=== PATIENT | female | born 1960 | race American Indian/Alaskan Native ===

== ENCOUNTER 2018-02-22 08:43 | Emergency (ER) | payer MEDICAID ==
[~2018-02-22] VITALS: Ht 172.7 cm; Wt 90.0 kg
[~2018-02-22 08:43] MED LIST: AMIO200T57 PO; ASPI-845 PO; CYCL-1 PO; HYDR-569 PO; MAG30ORA PO; METH4TAB3 PO; METH500T PO; NITR0.4T48 SL; ONDA8TAB9 PO
[2018-02-22 09:08] VITALS: BP 125/84
[2018-02-22] MEDS ORDERED: ketorolac trometh inj. 60 MG/2 ML VIAL IM ONE (09:20)
[2018-02-22] MEDS ORDERED: IBUP-1984 PO (09:23)
[2018-02-23] MEDS ORDERED: AZIT-57 PO (15:49)
== END 2018-02-22 10:05 | disposition home or self-care (01) ==
LOC: ER 08:45
DX: M54.2 Cervicalgia (principal); M54.32 Sciatica, left side; I25.10 Atherosclerotic heart disease of native coronary artery without angina pectoris; I10 Essential (primary) hypertension; G89.29 Other chronic pain; I25.2 Old myocardial infarction; I48.91 Unspecified atrial fibrillation; F17.200 Nicotine dependence, unspecified, uncomplicated; Z90.49 Acquired absence of other specified parts of digestive tract; Z88.0 Allergy status to penicillin; Z79.899 Other long term (current) drug therapy; Z79.82 Long term (current) use of aspirin
CPT/HCPCS: 96372; 99283; J1885

== ENCOUNTER 2018-02-23 14:09 | Emergency (ER) | payer MEDICAID ==
[~2018-02-23] VITALS: Ht 154.9 cm; Wt 90.0 kg
[~2018-02-23 14:09] MED LIST changes: +IBUP-1984 PO
[2018-02-23 15:19] LABS: BASOPHILS % (AUTO) 0.3 % (0-1); EOSINOPHILS # (AUTO) 0.3 X10'3 (0-0.9); EOSINOPHILS % (AUTO) 2.5 % (0-6); HEMOGLOBIN 14.3 g/dl (12.0-16.0); LYMPHOCYTES # (AUTO) 3.2 X10'3 (1.1-4.8); MEAN CORPUSCULAR HEMOGLOBIN 31.3 PG (27.0-31.0); MEAN CORPUSCULAR VOLUME 89.4 FL (78-98); MEAN PLATELET VOLUME 7.9 FL (7.4-10.4); MONOCYTES # (AUTO) 0.5 X10'3 (0-0.9); MONOCYTES % (AUTO) 4.5 % (2-12); NEUTROPHILS # (AUTO) 7.4 X10'3 (1.8-7.7); NEUTROPHILS % (AUTO) 64.7 % (42-75); PLATELET COUNT 229 X10'3 (140-440); RED BLOOD COUNT 4.59 X10'6 (4.20-5.60); RED CELL DISTRIBUTION WIDTH 13.6 % (11.5-14.5); WHITE BLOOD COUNT 11.4 X10'3 (4.5-11.0)
[2018-02-23 15:29] LABS: INR 0.9 INR; PARTIAL THROMBOPLASTIN TIME 24 SECONDS (22-32); PROTHROMBIN TIME 9.5 SECONDS (9.0-12.0)
[2018-02-23 15:34] LABS: ALANINE AMINOTRANSFERASE 36 U/L (12-78); ALBUMIN 3.7 G/DL (3.4-5.0); ALKALINE PHOSPHATASE 80 IU/L (46-116); ANION GAP 9 (8-16); ASPARTATE AMINO TRANSFERASE 19 U/L (10-37); BILIRUBIN,TOTAL 0.2 MG/DL (0.1-1.0); BLOOD UREA NITROGEN 16 MG/DL (7-18); BUN/CREATININE RATIO 17.8 (6.6-38.0); CALCIUM 9.2 MG/DL (8.5-10.1); CHLORIDE 109 MMOL/L (99-107); GLUCOSE 116 MG/DL (70-104); POTASSIUM 3.7 MMOL/L (3.5-5.1); SODIUM 145 MMOL/L (135-145); TOTAL CARBON DIOXIDE 27.1 MMOL/L (24-32); TOTAL PROTEIN 7.3 G/DL (6.4-8.2); eGFR 65 ML/MIN
[2018-02-23] MEDS ORDERED: AZIT-57 PO (15:49)
[2018-02-23 15:58] VITALS: BP 128/83
== END 2018-02-23 16:02 | disposition home or self-care (01) ==
LOC: ER 14:10
DX: M25.552 Pain in left hip (principal); I25.10 Atherosclerotic heart disease of native coronary artery without angina pectoris; I25.2 Old myocardial infarction; I48.91 Unspecified atrial fibrillation; I10 Essential (primary) hypertension; G89.29 Other chronic pain; Z90.49 Acquired absence of other specified parts of digestive tract; Z98.890 Other specified postprocedural states; Z88.0 Allergy status to penicillin; Z88.8 Allergy status to other drugs, medicaments and biological substances; Z79.899 Other long term (current) drug therapy; Z79.82 Long term (current) use of aspirin; Z56.0 Unemployment, unspecified
CPT/HCPCS: 36415; 71045; 80053; 84484; 85025; 85610; 85730; 93005; 99285

== ENCOUNTER 2018-02-26 08:26 | Emergency (ER) | payer MEDICAID ==
[~2018-02-26] VITALS: Ht 172.7 cm; Wt 78.6 kg
[~2018-02-26 08:26] MED LIST changes: +AZIT-57 PO
[2018-02-26 08:40] VITALS: BP 117/54
[2018-02-26] MEDS ORDERED: NEOM10DR45 OT (09:49)
== END 2018-02-26 10:15 | disposition home or self-care (01) ==
LOC: ER 08:26
DX: H60.91 Unspecified otitis externa, right ear (principal); I25.10 Atherosclerotic heart disease of native coronary artery without angina pectoris; I10 Essential (primary) hypertension; I25.2 Old myocardial infarction; G89.29 Other chronic pain; M19.90 Unspecified osteoarthritis, unspecified site; I48.91 Unspecified atrial fibrillation; Z90.49 Acquired absence of other specified parts of digestive tract; Z98.890 Other specified postprocedural states; Z88.0 Allergy status to penicillin; Z88.9 Allergy status to unspecified drugs, medicaments and biological substances; Z79.82 Long term (current) use of aspirin; Z79.899 Other long term (current) drug therapy
CPT/HCPCS: 99283

== ENCOUNTER 2019-07-16 01:41 | Emergency (ER) | payer MEDICAID ==
[~2019-07-16] VITALS: Ht 172.7 cm; Wt 83.6 kg
[~2019-07-16 01:41] MED LIST changes: -AMIO200T57 PO; +AMIO200T61 PO; -AZIT-57 PO; +HYDR-4383 PO; -HYDR-569 PO; -IBUP-1984 PO
[2019-07-16 02:10] LABS: CLARITY,URINE CLEAR (Clear); COLOR,URINE YELLOW (Yellow); GLUCOSE, URINE NEGATIVE (Neg); KETONES,URINE NEGATIVE (Neg); LEUKOCYTE ESTERASE ,URINE NEGATIVE (Neg); NITRITES, URINE NEGATIVE (Neg); OCCULT BLOOD,URINE NEGATIVE (Neg); PH,URINE 5.5 (4.8-8.0); PROTEIN,URINE NEGATIVE (Neg); UROBILINOGEN,URINE 0.2 E.U/dL (0.2-1.0)
[2019-07-16 02:13] LABS: UA COLLECTION TYPE VOIDED
[2019-07-16 02:57] LABS: ALANINE AMINOTRANSFERASE 46 U/L (12-78); ALBUMIN 3.2 G/DL (3.4-5.0); ALKALINE PHOSPHATASE 99 IU/L (46-116); ANION GAP 8 (8-16); ASPARTATE AMINO TRANSFERASE 24 U/L (10-37); BILIRUBIN,TOTAL 0.2 MG/DL (0.1-1.0); BLOOD UREA NITROGEN 10 MG/DL (7-18); BUN/CREATININE RATIO 12.3 (6.6-38.0); CALCIUM 8.2 MG/DL (8.5-10.1); CHLORIDE 111 MMOL/L (99-107); CREATININE 0.81 MG/DL (0.40-0.90); GLUCOSE 116 MG/DL (70-104); POTASSIUM 3.7 MMOL/L (3.5-5.1); SODIUM 147 MMOL/L (135-145); TOTAL CARBON DIOXIDE 27.6 MMOL/L (24-32); TOTAL PROTEIN 6.4 G/DL (6.4-8.2); eGFR 73 ML/MIN
[2019-07-16 02:59] LABS: BASOPHILS % (AUTO) 0.6 % (0-1); EOSINOPHILS # (AUTO) 0.2 X10'3 (0-0.9); EOSINOPHILS % (AUTO) 3.4 % (0-6); HEMATOCRIT 41.5 % (35.0-45.0); LYMPHOCYTES # (AUTO) 2.6 X10'3 (1.1-4.8); LYMPHOCYTES % (AUTO) 40.5 % (21-51); MEAN CORPUSCULAR HEMOGLOBIN 30.6 PG (27.0-31.0); MEAN CORPUSCULAR HGB CONC 33.7 g/dL (33.0-36.5); MEAN PLATELET VOLUME 8.3 FL (7.4-10.4); MONOCYTES # (AUTO) 0.5 X10'3 (0-0.9); MONOCYTES % (AUTO) 7.6 % (2-12); NEUTROPHILS # (AUTO) 3.1 X10'3 (1.8-7.7); NEUTROPHILS % (AUTO) 47.9 % (42-75); PLATELET COUNT 221 X10'3 (140-440); RED BLOOD COUNT 4.57 X10'6 (4.20-5.60); RED CELL DISTRIBUTION WIDTH 13.8 % (11.5-14.5); WHITE BLOOD COUNT 6.5 X10'3 (4.5-11.0)
[2019-07-16] MEDS ORDERED: normal saline 1000ml 1,000 ML IVB ONE (04:04)
[2019-07-16] MEDS ORDERED: proCHLORperazine 10 MG/2 ml inj IV ONE (04:05)
[2019-07-16] MEDS ORDERED: pantoprazole 40 MG vial IV ONE (08:25)
[2019-07-16] MEDS ORDERED: PANT-47 PO (08:34)
[2019-07-16] MEDS ORDERED: PROC25SU31 RC (08:34)
[2019-07-16 08:59] VITALS: BP 107/70
== END 2019-07-16 09:01 | disposition home or self-care (01) ==
LOC: ER 01:42
DX: R11.10 Vomiting, unspecified (principal); R10.13 Epigastric pain; I48.91 Unspecified atrial fibrillation; I25.10 Atherosclerotic heart disease of native coronary artery without angina pectoris; I10 Essential (primary) hypertension; I25.2 Old myocardial infarction; M19.90 Unspecified osteoarthritis, unspecified site; G89.29 Other chronic pain; F41.9 Anxiety disorder, unspecified; F17.200 Nicotine dependence, unspecified, uncomplicated; Z56.0 Unemployment, unspecified; Z88.0 Allergy status to penicillin; Z91.018 Allergy to other foods; Z90.49 Acquired absence of other specified parts of digestive tract; Z98.890 Other specified postprocedural states; Z79.82 Long term (current) use of aspirin; Z79.899 Other long term (current) drug therapy
CPT/HCPCS: 36415; 80053; 81003; 85025; 85610; 96361; 96374; 96375; 99283; C9113; J0780; J7030

== ENCOUNTER 2019-08-02 15:42 | Emergency (ER) | payer MEDICAID ==
[~2019-08-02] VITALS: Ht 172.7 cm; Wt 172.0 kg
[~2019-08-02 15:42] MED LIST changes: +PANT-47 PO; +PROC25SU31 RC
[2019-08-02 16:17] VITALS: BP 130/73
[2019-08-02] MEDS ORDERED: aspirin 81mg tab.chew PO ONE (16:35)
[2019-08-02 16:49] LABS: BASOPHILS # (AUTO) 0.1 X10'3 (0-0.2); BASOPHILS % (AUTO) 1.2 % (0-1); EOSINOPHILS # (AUTO) 0.4 X10'3 (0-0.9); EOSINOPHILS % (AUTO) 3.4 % (0-6); HEMATOCRIT 44.9 % (35.0-45.0); HEMOGLOBIN 14.9 g/dl (12.0-16.0); LYMPHOCYTES # (AUTO) 4.1 X10'3 (1.1-4.8); LYMPHOCYTES % (AUTO) 35.9 % (21-51); MEAN CORPUSCULAR HGB CONC 33.2 g/dL (33.0-36.5); MEAN CORPUSCULAR VOLUME 90.3 FL (78-98); MEAN PLATELET VOLUME 8.9 FL (7.4-10.4); MONOCYTES # (AUTO) 0.6 X10'3 (0-0.9); MONOCYTES % (AUTO) 4.9 % (2-12); NEUTROPHILS # (AUTO) 6.2 X10'3 (1.8-7.7); NEUTROPHILS % (AUTO) 54.6 % (42-75); PLATELET COUNT 249 X10'3 (140-440); RED BLOOD COUNT 4.98 X10'6 (4.20-5.60); RED CELL DISTRIBUTION WIDTH 13.7 % (11.5-14.5); WHITE BLOOD COUNT 11.4 X10'3 (4.5-11.0)
[2019-08-02 16:57] LABS: ALANINE AMINOTRANSFERASE 40 U/L (12-78); ALBUMIN 3.9 G/DL (3.4-5.0); ALBUMIN/GLOBULIN RATIO 1.1 (1.1-1.5); ALKALINE PHOSPHATASE 104 IU/L (46-116); ANION GAP 14 (8-16); ASPARTATE AMINO TRANSFERASE 16 U/L (10-37); BILIRUBIN,TOTAL 0.1 MG/DL (0.1-1.0); BLOOD UREA NITROGEN 13 MG/DL (7-18); BUN/CREATININE RATIO 16.7 (6.6-38.0); CALCIUM 8.8 MG/DL (8.5-10.1); CHLORIDE 109 MMOL/L (99-107); CREATININE 0.78 MG/DL (0.40-0.90); GLUCOSE 158 MG/DL (70-104); POTASSIUM 3.8 MMOL/L (3.5-5.1); SODIUM 144 MMOL/L (135-145); TOTAL CARBON DIOXIDE 21.2 MMOL/L (24-32); TOTAL PROTEIN 7.4 G/DL (6.4-8.2); eGFR 76 ML/MIN
--- NOTE | 2019-08-02 18:10 | NUR ---
PT LEFT WITHOUT BEING SEEN, ANNOUNCED LEAVING TO REGISTRATION
== END 2019-08-02 18:10 | disposition left against medical advice (07) ==
LOC: ER 15:42
DX: R07.89 Other chest pain (principal); Z53.21 Procedure and treatment not carried out due to patient leaving prior to being seen by health care provider
CPT/HCPCS: 36415; 71045; 80053; 83735; 83880; 84484; 85025; 93005

== ENCOUNTER 2019-12-21 18:56 | Emergency (ER) | payer MEDICAID ==
[~2019-12-21] VITALS: Ht 172.7 cm; Wt 95.7 kg
[~2019-12-21 18:56] MED LIST changes: -PROC25SU31 RC
[2019-12-21 20:11] LABS: BASOPHILS # (AUTO) 0.1 X10'3 (0-0.2); BASOPHILS % (AUTO) 1.1 % (0-1); EOSINOPHILS # (AUTO) 0.4 X10'3 (0-0.9); EOSINOPHILS % (AUTO) 3.2 % (0-6); HEMATOCRIT 43.8 % (35.0-45.0); HEMOGLOBIN 15.1 g/dl (12.0-16.0); LYMPHOCYTES # (AUTO) 3.6 X10'3 (1.1-4.8); LYMPHOCYTES % (AUTO) 31.4 % (21-51); MEAN CORPUSCULAR HEMOGLOBIN 30.5 PG (27.0-31.0); MEAN CORPUSCULAR HGB CONC 34.4 g/dL (33.0-36.5); MEAN CORPUSCULAR VOLUME 88.5 FL (78-98); MEAN PLATELET VOLUME 7.9 FL (7.4-10.4); MONOCYTES # (AUTO) 0.5 X10'3 (0-0.9); MONOCYTES % (AUTO) 4.5 % (2-12); NEUTROPHILS # (AUTO) 6.9 X10'3 (1.8-7.7); NEUTROPHILS % (AUTO) 59.8 % (42-75); PLATELET COUNT 244 X10'3 (140-440); RED BLOOD COUNT 4.95 X10'6 (4.20-5.60); RED CELL DISTRIBUTION WIDTH 13.6 % (11.5-14.5); WHITE BLOOD COUNT 11.5 X10'3 (4.5-11.0)
[2019-12-21 20:23] LABS: ALANINE AMINOTRANSFERASE 36 U/L (12-78); ALBUMIN 3.8 G/DL (3.4-5.0); ALBUMIN/GLOBULIN RATIO 1.1 (1.1-1.5); ALKALINE PHOSPHATASE 113 IU/L (46-116); ANION GAP 10 (8-16); ASPARTATE AMINO TRANSFERASE 17 U/L (10-37); BILIRUBIN,TOTAL 0.2 MG/DL (0.1-1.0); BLOOD UREA NITROGEN 13 MG/DL (7-18); CALCIUM 9.3 MG/DL (8.5-10.1); CHLORIDE 109 MMOL/L (99-107); GLUCOSE 126 MG/DL (70-104); POTASSIUM 3.8 MMOL/L (3.5-5.1); SODIUM 145 MMOL/L (135-145); TOTAL CARBON DIOXIDE 26.5 MMOL/L (24-32); TOTAL PROTEIN 7.2 G/DL (6.4-8.2); eGFR 57 ML/MIN
[2019-12-21 20:35] VITALS: BP 134/81
== END 2019-12-21 21:25 | disposition home or self-care (01) ==
LOC: ER 18:56
DX: M54.12 Radiculopathy, cervical region (principal); R20.2 Paresthesia of skin; I48.91 Unspecified atrial fibrillation; I25.10 Atherosclerotic heart disease of native coronary artery without angina pectoris; I10 Essential (primary) hypertension; I25.2 Old myocardial infarction; M19.90 Unspecified osteoarthritis, unspecified site; G89.29 Other chronic pain; F41.9 Anxiety disorder, unspecified; Z90.49 Acquired absence of other specified parts of digestive tract; Z98.890 Other specified postprocedural states; Z56.0 Unemployment, unspecified; Z88.0 Allergy status to penicillin; Z79.82 Long term (current) use of aspirin; Z79.899 Other long term (current) drug therapy; Z91.018 Allergy to other foods
CPT/HCPCS: 36415; 71045; 80053; 84484; 85025; 93005; 99285

== ENCOUNTER 2020-01-08 21:32 | Inpatient (IN) | payer MEDICAID ==
[~2020-01-08] VITALS: Ht 172.7 cm; Wt 97.0 kg
[2020-01-08 22:05] LABS: BASOPHILS # (AUTO) 0.1 X10'3 (0-0.2); BASOPHILS % (AUTO) 0.9 % (0-1); EOSINOPHILS # (AUTO) 0.3 X10'3 (0-0.9); EOSINOPHILS % (AUTO) 2.8 % (0-6); HEMATOCRIT 45.9 % (35.0-45.0); HEMOGLOBIN 15.7 g/dl (12.0-16.0); LYMPHOCYTES # (AUTO) 3.5 X10'3 (1.1-4.8); LYMPHOCYTES % (AUTO) 28.1 % (21-51); MEAN CORPUSCULAR HEMOGLOBIN 30.2 PG (27.0-31.0); MEAN CORPUSCULAR HGB CONC 34.1 g/dL (33.0-36.5); MEAN CORPUSCULAR VOLUME 88.7 FL (78-98); MEAN PLATELET VOLUME 7.9 FL (7.4-10.4); MONOCYTES # (AUTO) 0.7 X10'3 (0-0.9); MONOCYTES % (AUTO) 5.8 % (2-12); NEUTROPHILS # (AUTO) 7.7 X10'3 (1.8-7.7); NEUTROPHILS % (AUTO) 62.4 % (42-75); PLATELET COUNT 263 X10'3 (140-440); RED BLOOD COUNT 5.18 X10'6 (4.20-5.60); RED CELL DISTRIBUTION WIDTH 13.7 % (11.5-14.5); WHITE BLOOD COUNT 12.4 X10'3 (4.5-11.0)
[2020-01-08] MEDS ORDERED: aspirin 81mg tab.chew PO ONE (22:05)
[2020-01-08] MEDS ORDERED: nitroGLYCERIN 0.4mg SUBLingual tab SL PRN (22:05)
[2020-01-08] MEDS ORDERED: acetaminophen 325mg tablet PO ONE (22:05)
[2020-01-08 22:07] LABS: ALANINE AMINOTRANSFERASE 40 U/L (12-78); ALBUMIN 3.9 G/DL (3.4-5.0); ALBUMIN/GLOBULIN RATIO 1.1 (1.1-1.5); ALKALINE PHOSPHATASE 104 IU/L (46-116); ANION GAP 9 (8-16); ASPARTATE AMINO TRANSFERASE 18 U/L (10-37); BILIRUBIN,TOTAL 0.3 MG/DL (0.1-1.0); BLOOD UREA NITROGEN 8 MG/DL (7-18); BUN/CREATININE RATIO 8.7 (6.6-38.0); CALCIUM 8.6 MG/DL (8.5-10.1); CHLORIDE 108 MMOL/L (99-107); CREATININE 0.92 MG/DL (0.40-0.90); GLUCOSE 109 MG/DL (70-104); POTASSIUM 3.8 MMOL/L (3.5-5.1); SODIUM 143 MMOL/L (135-145); TOTAL CARBON DIOXIDE 26.3 MMOL/L (24-32); TOTAL PROTEIN 7.4 G/DL (6.4-8.2); eGFR 63 ML/MIN
[2020-01-08 22:25] LABS: MAGNESIUM 2.1 MG/DL (1.5-2.4); PHOSPHORUS 3.6 MG/DL (2.3-4.5)
[2020-01-08 22:38] LABS: PARTIAL THROMBOPLASTIN TIME 25 SECONDS (22-32)
[2020-01-08] MEDS ORDERED: mag hydrox/Alum hydrox/simeth 30ml oral suspension PO PRN (23:35)
[2020-01-08] MEDS ORDERED: potassium Cl 20 mEq SR tablet PO PRN ×2 (23:35)
[2020-01-08] MEDS ORDERED: magnesium 2GM in 50ml NS 50 ML IV PRN (23:35)
[2020-01-08] MEDS ORDERED: acetaminophen 325mg tablet PO PRN (23:35)
[2020-01-08] MEDS ORDERED: potassium CL 10mEq/100ml bag 100 ML IV PRN ×2 (23:35)
[2020-01-08] MEDS ORDERED: magnesium Cl slow-release 64mg tablet PO PRN (23:35)
[2020-01-08] MEDS ORDERED: temazepam 15mg capsule PO ONE (23:35)
[2020-01-08] MEDS ORDERED: ondansetron/PF 4mg/2ml inj IV PRN (23:35)
[2020-01-08] MEDS ORDERED: magnesium 4gm in 100ml NS 100 ML IV PRN (23:35)
[2020-01-08] MEDS ORDERED: magnesium hydroxide 30ml (MOM) UD suspension PO PRN (23:35)
--- NOTE | 2020-01-08 23:40 | NUR ---
Brought patient a snack.
[2020-01-09 00:58] LABS: ALANINE AMINOTRANSFERASE 35 U/L (12-78); ALBUMIN 3.5 G/DL (3.4-5.0); ALBUMIN/GLOBULIN RATIO 1.1 (1.1-1.5); ALKALINE PHOSPHATASE 95 IU/L (46-116); ANION GAP 7 (8-16); ASPARTATE AMINO TRANSFERASE 17 U/L (10-37); BILIRUBIN,TOTAL 0.2 MG/DL (0.1-1.0); BLOOD UREA NITROGEN 10 MG/DL (7-18); BUN/CREATININE RATIO 11.8 (6.6-38.0); CALCIUM 8.5 MG/DL (8.5-10.1); CHLORIDE 109 MMOL/L (99-107); CREATININE 0.85 MG/DL (0.40-0.90); GLUCOSE 149 MG/DL (70-104); POTASSIUM 3.8 MMOL/L (3.5-5.1); SODIUM 142 MMOL/L (135-145); TOTAL CARBON DIOXIDE 25.6 MMOL/L (24-32); TOTAL PROTEIN 6.8 G/DL (6.4-8.2); eGFR 69 ML/MIN
[2020-01-09] MEDS ORDERED: HYDR-4353 PO (01:19)
[2020-01-09] MEDS: HYDROcodone/acetaminophen 10/325mg tab PO PRN ×2 (02:49→07:40)
[2020-01-09 03:04] VITALS: BP 99/59
[2020-01-09] MEDS ORDERED: metoprolol tartrate 1mg/ml inj IV PRN (06:15)
[2020-01-09] MEDS ORDERED: nitroGLYCERIN 0.4mg SUBLingual tab SL PRN (06:15)
[2020-01-09 06:16] LABS: BASOPHILS # (AUTO) 0.1 X10'3 (0-0.2); BASOPHILS % (AUTO) 0.9 % (0-1); EOSINOPHILS # (AUTO) 0.4 X10'3 (0-0.9); EOSINOPHILS % (AUTO) 3.8 % (0-6); HEMATOCRIT 43.2 % (35.0-45.0); HEMOGLOBIN 14.8 g/dl (12.0-16.0); LYMPHOCYTES # (AUTO) 4.2 X10'3 (1.1-4.8); MEAN CORPUSCULAR HEMOGLOBIN 30.4 PG (27.0-31.0); MEAN CORPUSCULAR HGB CONC 34.1 g/dL (33.0-36.5); MEAN CORPUSCULAR VOLUME 89.1 FL (78-98); MEAN PLATELET VOLUME 8.1 FL (7.4-10.4); MONOCYTES # (AUTO) 0.6 X10'3 (0-0.9); MONOCYTES % (AUTO) 6.2 % (2-12); NEUTROPHILS # (AUTO) 4.9 X10'3 (1.8-7.7); NEUTROPHILS % (AUTO) 48.1 % (42-75); PLATELET COUNT 257 X10'3 (140-440); RED BLOOD COUNT 4.85 X10'6 (4.20-5.60); RED CELL DISTRIBUTION WIDTH 13.7 % (11.5-14.5); WHITE BLOOD COUNT 10.3 X10'3 (4.5-11.0)
[2020-01-09 06:30] VITALS: BP 118/79
--- NOTE | 2020-01-09 06:32 | NUR ---
Problems reprioritized. Patient report given, questions answered & plan of care reviewed with MAGGY Tracy . Patient stable at shift change
--- NOTE | 2020-01-09 06:38 | NUR ---
Patient in room MED 313. I have received report from Vinnie WINTER and had the opportunity to ask questions and assume patient care.
[2020-01-09 07:42] VITALS: BP_SYST 92
[2020-01-09] MEDS ORDERED: aspirin 81mg tab.chew PO SCH (08:00)
[2020-01-09] MEDS ORDERED: enoxaparin 40mg/0.4ml syringe SQ SCH (08:00)
[2020-01-09] MEDS ORDERED: clopidogrel 75mg tablet PO SCH (08:00)
[2020-01-09] MEDS ORDERED: metoprolol tartrate 12.5mg (1/2 tablet) PO SCH (08:00)
[2020-01-09] MEDS ORDERED: K and/or MAG REPLACEMENT MC SCH (08:00)
[2020-01-09] MEDS ORDERED: ASPI-1265 PO (09:47)
[2020-01-09] MEDS ORDERED: METO25TA6 PO (09:47)
[2020-01-09] MEDS ORDERED: NITR0.4T51 SL (09:47)
--- NOTE | 2020-01-09 12:00 | NUR ---
Discussed discharge instructions with patient, verbalized understanding, eager to go home. IV removed, cathlon intact, Belongings with patient and ready to go. Meds called into pharmacy. Waiting on ride and will d/c after lunch.
--- NOTE | 2020-01-09 12:35 | NUR ---
Escorted patient out via [facility] staff to patient private vehicle of whom her friend is driving, tolerated without event.
== END 2020-01-09 12:35 | disposition home or self-care (01) | DRG 198 ==
LOC: ER 21:32 → ED HOLD 23:36 → MED 3N 01-09 02:15 → OBSVTOIN 01-09 11:10
PROVIDERS: ADMIT Family Medicine; ATTEND Family Medicine
DX: R07.89 Other chest pain (principal); I25.10 Atherosclerotic heart disease of native coronary artery without angina pectoris; I48.91 Unspecified atrial fibrillation; F17.210 Nicotine dependence, cigarettes, uncomplicated; F41.9 Anxiety disorder, unspecified; I10 Essential (primary) hypertension; G89.29 Other chronic pain; M19.90 Unspecified osteoarthritis, unspecified site; M54.9 Dorsalgia, unspecified; R51 Headache; Z90.49 Acquired absence of other specified parts of digestive tract; I25.2 Old myocardial infarction; Z87.440 Personal history of urinary (tract) infections; Z88.0 Allergy status to penicillin
CPT/HCPCS: 36415; 70450; 71045; 80053; 83735; 84100; 84484; 85025; 85610; 85730; 87081; 96372; 99285; G0378; J1650

== ENCOUNTER 2021-05-14 10:57 | Day surgery (SDC) | payer MEDICAID ==
[2021-05-09 17:18] LABS: BASOPHILS # (AUTO) 0.1 X10'3 (0-0.2); BASOPHILS % (AUTO) 0.6 % (0-1); EOSINOPHILS # (AUTO) 0.3 X10'3 (0-0.9); EOSINOPHILS % (AUTO) 2.7 % (0-6); LYMPHOCYTES % (AUTO) 30.6 % (21-51); MEAN CORPUSCULAR HEMOGLOBIN 30.2 PG (27.0-31.0); MEAN CORPUSCULAR HGB CONC 33.5 g/dL (33.0-36.5); MEAN CORPUSCULAR VOLUME 90.2 FL (78-98); MEAN PLATELET VOLUME 8.5 FL (7.4-10.4); MONOCYTES # (AUTO) 0.5 X10'3 (0-0.9); MONOCYTES % (AUTO) 5.4 % (2-12); NEUTROPHILS % (AUTO) 60.7 % (42-75); PRE OP HEMOGLOBIN 14.7 g/dL (12.0-16.0); PRE OP PLATELET COUNT 245 X10'3 (140-440); RED BLOOD COUNT 4.88 X10'6 (4.20-5.60); RED CELL DISTRIBUTION WIDTH 13.7 % (11.5-14.5)
[2021-05-09 17:55] LABS: ALBUMIN 3.6 G/DL (3.4-5.0); ALBUMIN/GLOBULIN RATIO 1.1 (1.1-1.5); ALKALINE PHOSPHATASE 115 IU/L (46-116); BLOOD UREA NITROGEN 18 MG/DL (7-18); BUN/CREATININE RATIO 22.5 (6.6-38.0); CALCIUM 8.2 MG/DL (8.5-10.1); CHLORIDE 109 MMOL/L (99-107); PRE OP ALT 38 U/L (30-65); PRE OP ANION GAP 11 (8-16); PRE OP AST 14 U/L (10-37); PRE OP BILIRUB, TOTAL 0.2 MG/DL (0.0-1.0); PRE OP GLUCOSE 110 MG/DL (70-104); PRE OP POTASSIUM 4.3 MMOL/L (3.4-5.1); PRE OP SODIUM 142 MMOL/L (135-145); TOTAL CARBON DIOXIDE 22.3 MMOL/L (24-32); eGFR 74 ML/MIN
[2021-05-14] VITALS (8 sets, daily range): BP systolic 112–125; BP diastolic 59–86
[~2021-05-14] VITALS: Ht 172.7 cm; Wt 94.7 kg
[~2021-05-14 10:57] MED LIST changes: -AMIO200T61 PO; +ASPI-1071 PO; -ASPI-845 PO; -CYCL-1 PO; +HYDR-3973 PO; -HYDR-4383 PO; -MAG30ORA PO; -METH4TAB3 PO; -METH500T PO; -NITR0.4T48 SL; +NITR0.4T51 SL; -ONDA8TAB9 PO; -PANT-47 PO; +albuterol 2.5 MG/3 ML nebule NEB ONE; +clindamycin-Cleocin 900mg/D5W 50 ML IV ONE; +famotidine 20mg tablet PO ONE; +ringers solution, lacted 1,000 ML IV SCH
[2021-05-14] MEDS ORDERED: BUPIVAcaine/PF 2.5mg/ml (0.25%) 10ml vial ONE (12:03)
[2021-05-14] MEDS ORDERED: LIDOcaine 1% 30ml preserv. free vial ONE (12:03)
[2021-05-14] MEDS ORDERED: sevoflurane 250ml liquid IH ONE (12:12)
[2021-05-14] MEDS ORDERED: fentaNYL/PF 50MCG/1 ML 2ML syringe ONE (12:26)
[2021-05-14] MEDS ORDERED: midazolam 1 mg/ML 2ml injection ONE (12:27)
[2021-05-14] MEDS ORDERED: propofol inj 20 ML IV ONE (12:31)
[2021-05-14] MEDS ORDERED: ondansetron/PF 4mg/2ml inj IV PRN (12:45)
[2021-05-14] MEDS ORDERED: morphine 4 MG/ML inj SYRINge IV PRN (12:45)
[2021-05-14] MEDS ORDERED: morphine 2 MG/ML inj. syringe IV PRN (12:45)
[2021-05-14] MEDS ORDERED: meperidine/PF 25mg/ml syringe IV PRN ×3 (12:45)
[2021-05-14] MEDS ORDERED: proCHLORperazine 10 MG/2 ml inj IV PRN (12:45)
[2021-05-14] MEDS ORDERED: ringers solution, lacted 1,000 ML IV SCH (12:45)
[2021-05-14] MEDS ORDERED: LIDOcaine 2% (20mg/ml) 5ml vial ONE (12:49)
[2021-05-14] MEDS ORDERED: HYDROcodone/acetaminophen 10/325mg tab PO PRN (13:00)
--- NOTE | 2021-05-14 13:10 | NUR ---
Received from OR via [facility], accompanied by Anesthesiologist Dr. Hillman and report given by Anesthesiolgist. Patient has R.AC 20g with LR. Left lateral chest dressing CDI. VSS.
--- NOTE | 2021-05-14 14:00 | NUR ---
Patient discharged home with niece. States 10/10 pain with nonverbal pain of zero. Patient has chronic pain that she takes norco for. She states to have all belongings and dressing changed to left lateral chest due to patient accidentally pulling it off. She is given all discharge paperwork and is told she will have a follow up call but any questions to be directed toward Dr. Walker. She is aware she is to make her follow up appointment with him. PIV removed and patient offers no complaints.
== END 2021-05-14 14:00 | disposition home or self-care (01) ==
LOC: PAS 10:57
PROVIDERS: ATTEND Surgery
DX: R22.2 Localized swelling, mass and lump, trunk (principal); D17.1 Benign lipomatous neoplasm of skin and subcutaneous tissue of trunk; J44.9 Chronic obstructive pulmonary disease, unspecified; F17.210 Nicotine dependence, cigarettes, uncomplicated; G89.29 Other chronic pain; I48.91 Unspecified atrial fibrillation; Z20.822 Contact with and (suspected) exposure to COVID-19; Z79.899 Other long term (current) drug therapy; Z90.49 Acquired absence of other specified parts of digestive tract; Z98.890 Other specified postprocedural states; Z79.82 Long term (current) use of aspirin; Z88.0 Allergy status to penicillin; Z88.5 Allergy status to narcotic agent; Z91.018 Allergy to other foods; Z88.8 Allergy status to other drugs, medicaments and biological substances; Z91.030 Bee allergy status
CPT/HCPCS: 21552; 36415; 80053; 82948; 85025; 93005; J2001; J2250; J2704; J3010; J3490; J7120; U0003; U0005; A4215; A4618; A7000

== ENCOUNTER 2021-08-17 18:21 | Emergency (ER) | payer MEDICAID ==
[~2021-08-17] VITALS: Ht 172.7 cm; Wt 79.5 kg
[~2021-08-17 18:21] MED LIST changes: -albuterol 2.5 MG/3 ML nebule NEB ONE; -clindamycin-Cleocin 900mg/D5W 50 ML IV ONE; -famotidine 20mg tablet PO ONE; -ringers solution, lacted 1,000 ML IV SCH
[2021-08-17 18:25] VITALS: BP 131/79
[2021-08-17] MEDS ORDERED: acetaminophen 325mg tablet PO ONE (20:05)
== END 2021-08-17 20:34 | disposition home or self-care (01) ==
LOC: ER 18:22
DX: G44.209 Tension-type headache, unspecified, not intractable (principal); Z20.822 Contact with and (suspected) exposure to COVID-19; I11.9 Hypertensive heart disease without heart failure; F41.9 Anxiety disorder, unspecified; G89.29 Other chronic pain; M54.9 Dorsalgia, unspecified; F17.210 Nicotine dependence, cigarettes, uncomplicated; Z88.0 Allergy status to penicillin; Z91.018 Allergy to other foods
CPT/HCPCS: 87635; 99283; C9803

== ENCOUNTER 2022-05-28 17:29 | Inpatient (IN) | payer MEDICAID ==
[~2022-05-28] VITALS: Ht 172.7 cm; Wt 100.0 kg
[2022-05-28] MEDS ORDERED: aspirin 81mg tab.chew PO ONE (17:50)
[2022-05-28] MEDS ORDERED: normal saline 1000ML IV soln IVB ONE (17:50)
[2022-05-28] MEDS ORDERED: diltiazem 5mg/ml 5ml inj. IV ONE ×7 (17:50→19:15)
[2022-05-28 18:27] LABS: BASOPHILS # (AUTO) 0.1 X10'3 (0-0.2); BASOPHILS % (AUTO) 0.9 % (0-1); EOSINOPHILS # (AUTO) 0.3 X10'3 (0-0.9); EOSINOPHILS % (AUTO) 2.6 % (0-6); HEMATOCRIT 44.5 % (35.0-45.0); HEMOGLOBIN 14.8 g/dl (12.0-16.0); LYMPHOCYTES # (AUTO) 3.8 X10'3 (1.1-4.8); LYMPHOCYTES % (AUTO) 38.7 % (21-51); MEAN CORPUSCULAR HEMOGLOBIN 29.9 PG (27.0-31.0); MEAN CORPUSCULAR HGB CONC 33.3 g/dL (33.0-36.5); MEAN CORPUSCULAR VOLUME 89.7 FL (78-98); MEAN PLATELET VOLUME 8.4 FL (7.4-10.4); MONOCYTES # (AUTO) 0.6 X10'3 (0-0.9); MONOCYTES % (AUTO) 5.6 % (2-12); NEUTROPHILS # (AUTO) 5.2 X10'3 (1.8-7.7); NEUTROPHILS % (AUTO) 52.2 % (42-75); PLATELET COUNT 232 X10'3 (140-440); RED BLOOD COUNT 4.96 X10'6 (4.20-5.60); RED CELL DISTRIBUTION WIDTH 13.7 % (11.5-14.5)
[2022-05-28 18:38] LABS: APTT 24 SECONDS (22-32)
[2022-05-28 18:39] LABS: ALANINE AMINOTRANSFERASE 73 U/L (12-78); ALBUMIN 3.7 G/DL (3.4-5.0); ALBUMIN/GLOBULIN RATIO 1.1 (1.1-1.5); ALKALINE PHOSPHATASE 100 IU/L (46-116); ANION GAP 13 (8-16); ASPARTATE AMINO TRANSFERASE 24 U/L (10-37); BILIRUBIN,TOTAL 0.4 MG/DL (0.1-1.0); BLOOD UREA NITROGEN 12 MG/DL (7-18); BUN/CREATININE RATIO 13.3 (6.6-38.0); CALCIUM 8.7 MG/DL (8.5-10.1); CHLORIDE 111 MMOL/L (99-107); GLUCOSE 131 MG/DL (70-104); POTASSIUM 3.7 MMOL/L (3.5-5.1); SODIUM 145 MMOL/L (135-145); TOTAL CARBON DIOXIDE 20.9 MMOL/L (24-32); TOTAL PROTEIN 7.2 G/DL (6.4-8.2); eGFR 64 ML/MIN
[2022-05-28 18:50] LABS: MAGNESIUM 1.9 MG/DL (1.5-2.4)
[2022-05-28] MEDS: diltiazem-NS 100mg/100ml 100 ML IV PRN (19:36)
[2022-05-28] MEDS ORDERED: potassium CL 10mEq/100ml bag 100 ML IV PRN (19:50)
[2022-05-28] MEDS ORDERED: POTASSIUM BICARB 20meq eff tab 20 MEQ TABLET.EFF PO PRN ×2 (19:50)
[2022-05-28] MEDS ORDERED: PERFLUTREN PROTEIN-A MICROSPHR (Optison) 0.22 MG/ML 3ML VIAL IV ONE (19:50)
[2022-05-28] MEDS ORDERED: acetaminophen 325mg tablet PO PRN (19:50)
[2022-05-28] MEDS ORDERED: magnesium Cl slow-release 64mg tablet PO PRN (19:50)
[2022-05-28] MEDS ORDERED: magnesium 4gm in 100ml NS 100 ML IV PRN (19:50)
[2022-05-28] MEDS ORDERED: mag hydrox/Alum hydrox/simeth 30ml oral suspension PO PRN (19:50)
[2022-05-28] MEDS ORDERED: ondansetron/PF 4mg/2ml inj IV PRN (19:50)
[2022-05-28] MEDS ORDERED: magnesium 2GM in 50ml NS 50 ML IV PRN (19:50)
[2022-05-28] MEDS ORDERED: magnesium hydroxide 30ml (MOM) UD suspension PO PRN (19:50)
[2022-05-28] MEDS: docusate sod 100mg capsule PO SCH (20:00)
[2022-05-28] MEDS: K and/or MAG REPLACEMENT MC SCH (20:00)
[2022-05-28] MEDS ORDERED: heparin, porcine 5000 units/ml vial SQ SCH (20:00)
[2022-05-28] MEDS ORDERED: NITR0.4T48 SL (20:10)
[2022-05-28] MEDS ORDERED: ALBU2.5V10 NEB (20:10)
[2022-05-28] MEDS ORDERED: HYDR-3972 PO (20:10)
[2022-05-28] MEDS ORDERED: LIDO700A47 TOP (20:10)
[2022-05-28] MEDS ORDERED: OMEP40CA21 PO (20:10)
[2022-05-28] MEDS ORDERED: heparin, porcine 5000 units/ml vial SQ ONE (20:10)
[2022-05-28] MEDS ORDERED: CELE100C98 PO (20:10)
[2022-05-28] MEDS ORDERED: POTA8TAB69 PO (20:10)
[2022-05-28] MEDS ORDERED: BUDE0.5A3 NEB (20:10)
[2022-05-28] MEDS ORDERED: TIOT4MIS2 PO (20:10)
[2022-05-28] MEDS ORDERED: METO10TA3 PO (20:10)
[2022-05-28] MEDS ORDERED: FURO20TA4 PO (20:10)
[2022-05-28] MEDS ORDERED: normal saline 500ml IV soln 500 ML IV SCH (20:15)
[2022-05-28] MEDS: normal saline 1000ml 1,000 ML IV SCH (20:22)
[2022-05-28 20:38] LABS: CLARITY,URINE CLEAR (Clear); COLOR,URINE YELLOW (Yellow); GLUCOSE, URINE NEGATIVE (Neg); KETONES,URINE NEGATIVE (Neg); LEUKOCYTE ESTERASE ,URINE NEGATIVE (Neg); NITRITES, URINE NEGATIVE (Neg); OCCULT BLOOD,URINE NEGATIVE (Neg); PH,URINE 5.5 (4.8-8.0); PROTEIN,URINE NEGATIVE (Neg); UROBILINOGEN,URINE 0.2 E.U/dL (0.2-1.0)
[2022-05-28 20:41] LABS: POTASSIUM 3.8 MMOL/L (3.5-5.1)
[2022-05-28 20:44] LABS: UA COLLECTION TYPE CLN CATCH MIDSTREAM
[2022-05-29] MEDS ORDERED: metoprolol tartrate 1mg/ml inj IV ONE (00:55)
[2022-05-29] MEDS ORDERED: albuterol 2.5 MG/3 ML nebule NEB PRN (01:05)
[2022-05-29] MEDS ORDERED: nitroGLYCERIN 0.4mg SUBLingual tab SL PRN (01:05)
[2022-05-29] MEDS ORDERED: HYDROcodone/acetaminophen 10/325mg tab PO PRN (01:05)
[2022-05-29] MEDS: ipratropium 0.5 MG/2.5ML nebule IH SCH ×4 (02:11→20:59)
[2022-05-29 03:30] LABS: BASOPHILS # (AUTO) 0.1 X10'3 (0-0.2); BASOPHILS % (AUTO) 1.5 % (0-1); EOSINOPHILS # (AUTO) 0.2 X10'3 (0-0.9); EOSINOPHILS % (AUTO) 2.6 % (0-6); HEMATOCRIT 39.7 % (35.0-45.0); HEMOGLOBIN 13.2 g/dl (12.0-16.0); LYMPHOCYTES % (AUTO) 31.6 % (21-51); MEAN CORPUSCULAR HEMOGLOBIN 29.8 PG (27.0-31.0); MEAN CORPUSCULAR HGB CONC 33.3 g/dL (33.0-36.5); MEAN CORPUSCULAR VOLUME 89.5 FL (78-98); MEAN PLATELET VOLUME 8.8 FL (7.4-10.4); MONOCYTES # (AUTO) 0.5 X10'3 (0-0.9); MONOCYTES % (AUTO) 5.5 % (2-12); NEUTROPHILS # (AUTO) 5.6 X10'3 (1.8-7.7); NEUTROPHILS % (AUTO) 58.8 % (42-75); PLATELET COUNT 205 X10'3 (140-440); RED BLOOD COUNT 4.44 X10'6 (4.20-5.60); RED CELL DISTRIBUTION WIDTH 13.9 % (11.5-14.5); WHITE BLOOD COUNT 9.4 X10'3 (4.5-11.0)
[2022-05-29 03:46] LABS: ALANINE AMINOTRANSFERASE 63 U/L (12-78); ALBUMIN 3.1 G/DL (3.4-5.0); ALKALINE PHOSPHATASE 85 IU/L (46-116); ANION GAP 12 (8-16); ASPARTATE AMINO TRANSFERASE 26 U/L (10-37); BILIRUBIN,TOTAL 0.4 MG/DL (0.1-1.0); BLOOD UREA NITROGEN 14 MG/DL (7-18); BUN/CREATININE RATIO 16.5 (6.6-38.0); CALCIUM 7.9 MG/DL (8.5-10.1); CHLORIDE 111 MMOL/L (99-107); CREATININE 0.85 MG/DL (0.40-0.90); GLUCOSE 143 MG/DL (70-104); MAGNESIUM 1.8 MG/DL (1.5-2.4); POTASSIUM 3.6 MMOL/L (3.5-5.1); SODIUM 143 MMOL/L (135-145); TOTAL CARBON DIOXIDE 20.1 MMOL/L (24-32); TOTAL PROTEIN 6.1 G/DL (6.4-8.2); eGFR 68 ML/MIN
[2022-05-29] MEDS ORDERED: metoprolol tartrate 50mg tablet PO ONE (04:20)
--- NOTE | 2022-05-29 04:20 | NUR ---
IN CONTACT WITH DR. HERNANDEZ THROUGHOUT THE NIGHT ABOUT THE PTS. SOFT BP AND HR. DR. HERNANDEZ ORDERED LOPRESSOR. PT. IS ASYMPTOMATIC.
[2022-05-29] MEDS ORDERED: metoprolol tartrate 12.5mg (1/2 tablet) PO ONE (04:25)
--- NOTE | 2022-05-29 06:34 | NUR ---
CARDIZEM BAG CHANGED FOR NEW ONE AT THIS TIME
[2022-05-29] MEDS: pantoprazole 40mg Tablet.DR PO SCH (07:30)
[2022-05-29] MEDS: docusate sod 100mg capsule PO SCH ×3 (08:00→20:00)
[2022-05-29] MEDS: K and/or MAG REPLACEMENT MC SCH ×2 (08:00→20:00)
[2022-05-29] MEDS: LIDOcaine 5% patch TP SCH (08:35)
[2022-05-29] MEDS: metoclopramide 10mg tablet PO SCH ×4 (08:35→20:44)
[2022-05-29] MEDS: apixaban 5mg tablet PO SCH ×2 (09:19→20:44)
[2022-05-29] MEDS: HYDROcodone/acetaminophen 10/325mg tab PO PRN ×2 (12:49→17:12)
[2022-05-29] MEDS: diltiazem-NS 100mg/100ml 100 ML IV PRN (12:49)
[2022-05-29] MEDS ORDERED: diltiazem-NS 100mg/100ml 100 ML IV PRN (13:57)
[2022-05-30] MEDS: HYDROcodone/acetaminophen 10/325mg tab PO PRN ×3 (00:03→19:32)
[2022-05-30] MEDS: ipratropium 0.5 MG/2.5ML nebule IH SCH ×4 (02:38→20:26)
--- NOTE | 2022-05-30 03:37 | NUR ---
Pt declined blood draw at 0300.
[2022-05-30 06:06] VITALS: BP 113/70
--- NOTE | 2022-05-30 06:27 | NUR ---
Patient arrived to room [facility] 773 during shift change. I have received report from DOC WINTER and had the opportunity to ask questions. VS were taken by day shift aide and Pt was oriented to room. Cardiac gtt running. Addendum: 05/30/22 at 0631 by Monse Smith RN Amended: Links added.
--- NOTE | 2022-05-30 06:34 | NUR ---
Problems reprioritized. Patient report given, questions answered & plan of care reviewed with Edie WINTER. Addendum: 05/30/22 at 0635 by Monse Smith RN Amended: Links added.
[2022-05-30] MEDS: pantoprazole 40mg Tablet.DR PO SCH (07:30)
[2022-05-30 07:34] LABS: BASOPHILS # (AUTO) 0.1 X10'3 (0-0.2); BASOPHILS % (AUTO) 0.5 % (0-1); EOSINOPHILS # (AUTO) 0.2 X10'3 (0-0.9); EOSINOPHILS % (AUTO) 1.7 % (0-6); HEMATOCRIT 39.4 % (35.0-45.0); HEMOGLOBIN 12.9 g/dl (12.0-16.0); LYMPHOCYTES % (AUTO) 30.9 % (21-51); MEAN CORPUSCULAR HEMOGLOBIN 29.5 PG (27.0-31.0); MEAN CORPUSCULAR HGB CONC 32.7 g/dL (33.0-36.5); MEAN CORPUSCULAR VOLUME 90.2 FL (78-98); MEAN PLATELET VOLUME 8.8 FL (7.4-10.4); MONOCYTES # (AUTO) 0.5 X10'3 (0-0.9); MONOCYTES % (AUTO) 4.8 % (2-12); NEUTROPHILS % (AUTO) 62.1 % (42-75); PLATELET COUNT 228 X10'3 (140-440); RED BLOOD COUNT 4.37 X10'6 (4.20-5.60); WHITE BLOOD COUNT 9.7 X10'3 (4.5-11.0)
[2022-05-30 07:48] LABS: ALANINE AMINOTRANSFERASE 63 U/L (12-78); ALBUMIN 3.3 G/DL (3.4-5.0); ALBUMIN/GLOBULIN RATIO 0.9 (1.1-1.5); ALKALINE PHOSPHATASE 89 IU/L (46-116); ANION GAP 6 (8-16); ASPARTATE AMINO TRANSFERASE 23 U/L (10-37); BILIRUBIN,TOTAL 0.4 MG/DL (0.1-1.0); BLOOD UREA NITROGEN 17 MG/DL (7-18); BUN/CREATININE RATIO 19.1 (6.6-38.0); CALCIUM 8.5 MG/DL (8.5-10.1); CHLORIDE 104 MMOL/L (99-107); CREATININE 0.89 MG/DL (0.40-0.90); GLUCOSE 139 MG/DL (70-104); MAGNESIUM 1.9 MG/DL (1.5-2.4); SODIUM 132 MMOL/L (135-145); TOTAL CARBON DIOXIDE 22.4 MMOL/L (24-32); TOTAL PROTEIN 6.8 G/DL (6.4-8.2); eGFR 65 ML/MIN
[2022-05-30] MEDS: K and/or MAG REPLACEMENT MC SCH ×2 (08:00→20:00)
[2022-05-30] MEDS: metoclopramide 10mg tablet PO SCH ×4 (08:00→21:36)
[2022-05-30] MEDS: docusate sod 100mg capsule PO SCH ×2 (08:00→19:32)
[2022-05-30] MEDS: LIDOcaine 5% patch TP SCH (08:27)
[2022-05-30] MEDS: apixaban 5mg tablet PO SCH ×2 (10:27→19:31)
[2022-05-30 11:11] VITALS: BP 93/67
--- NOTE | 2022-05-30 12:20 | NUR ---
DM Consult: Pt admit w/ afib/RVR hx T2DM A1C 8.9% this admit w/ last 6.0% 2015 per EMR. Pt Glu 131-143mg/dl not on glycemic protocol though NPO initial two days of admit until this AM per EMR. Unsure of A1C accuracy. Pt seen by RD for written/verbal DM ed. Pt reports nausea this AM refused breakfast though feeling better declines verbal ed at this time. Written DM ed w/ RD contact information left at pt bedside. RD encouraged pt to contact dietitian's office if further questions/concerns. Addendum: 05/30/22 at [address] Amended: Links added.
[2022-05-30] MEDS ORDERED: digoxin 250mcg/ml 2ml ampule IV ONE (12:25)
[2022-05-30] MEDS ORDERED: furosemide 10 MG/1 ML 10ml inj IV ONE (12:25)
[2022-05-30 15:15] VITALS: BP 89/57
--- NOTE | 2022-05-30 17:14 | NUR ---
Pt converted to SR earlier and cardizem drip turned off.
[2022-05-30 18:00] VITALS: BP 109/68
--- NOTE | 2022-05-30 18:35 | NUR ---
Patient in room PCU 3027. I have received report from MAGGY Josue and had the opportunity to ask questions and assume patient care.
[2022-05-30 22:00] VITALS: BP 111/65
[2022-05-31 02:00] VITALS: BP 109/68
[2022-05-31] MEDS: HYDROcodone/acetaminophen 10/325mg tab PO PRN ×2 (02:20→10:15)
[2022-05-31] MEDS: ipratropium 0.5 MG/2.5ML nebule IH SCH ×2 (03:06→09:05)
--- NOTE | 2022-05-31 06:15 | NUR ---
Problems reprioritized. Patient report given, questions answered & plan of care reviewed with MAGGY Josue.
[2022-05-31] MEDS: normal saline 1000ml 1,000 ML IV SCH (06:43)
[2022-05-31 07:22] LABS: BASOPHILS # (AUTO) 0.1 X10'3 (0-0.2); BASOPHILS % (AUTO) 0.7 % (0-1); EOSINOPHILS # (AUTO) 0.2 X10'3 (0-0.9); MONOCYTES # (AUTO) 0.6 X10'3 (0-0.9); MONOCYTES % (AUTO) 6.5 % (2-12); WHITE BLOOD COUNT 9.6 X10'3 (4.5-11.0)
[2022-05-31 07:24] LABS: EOSINOPHILS % (AUTO) 2.1 % (0-6); HEMOGLOBIN 12.9 g/dl (12.0-16.0); LYMPHOCYTES # (AUTO) 3.1 X10'3 (1.1-4.8); LYMPHOCYTES % (AUTO) 32.3 % (21-51); MEAN CORPUSCULAR HEMOGLOBIN 30.3 PG (27.0-31.0); MEAN CORPUSCULAR VOLUME 91.8 FL (78-98); MEAN PLATELET VOLUME 9.6 FL (7.4-10.4); NEUTROPHILS # (AUTO) 5.6 X10'3 (1.8-7.7); NEUTROPHILS % (AUTO) 58.4 % (42-75); PLATELET COUNT 148 X10'3 (140-440); RED BLOOD COUNT 4.25 X10'6 (4.20-5.60); RED CELL DISTRIBUTION WIDTH 13.8 % (11.5-14.5)
[2022-05-31 07:28] VITALS: BP 109/63
[2022-05-31] MEDS: K and/or MAG REPLACEMENT MC SCH (08:00)
[2022-05-31] MEDS ORDERED: metoprolol tartrate 12.5mg (1/2 tablet) PO ONE (08:30)
[2022-05-31] MEDS ORDERED: METO-395 PO (09:45)
[2022-05-31] MEDS ORDERED: GLIP1TAB6 PO (09:45)
[2022-05-31] MEDS ORDERED: APIX5TAB3 PO (09:45)
[2022-05-31 09:54] LABS: ALANINE AMINOTRANSFERASE 66 U/L (12-78); ALBUMIN 3.4 G/DL (3.4-5.0); ALBUMIN/GLOBULIN RATIO 1.1 (1.1-1.5); ALKALINE PHOSPHATASE 91 IU/L (46-116); ANION GAP 9 (8-16); ASPARTATE AMINO TRANSFERASE 28 U/L (10-37); BILIRUBIN,TOTAL 0.3 MG/DL (0.1-1.0); BLOOD UREA NITROGEN 16 MG/DL (7-18); BUN/CREATININE RATIO 15.7 (6.6-38.0); CALCIUM 8.4 MG/DL (8.5-10.1); CHLORIDE 104 MMOL/L (99-107); CREATININE 1.02 MG/DL (0.40-0.90); GLUCOSE 193 MG/DL (70-104); SODIUM 138 MMOL/L (135-145); TOTAL CARBON DIOXIDE 25.3 MMOL/L (24-32); TOTAL PROTEIN 6.6 G/DL (6.4-8.2); eGFR 55 ML/MIN
[2022-05-31 10:13] VITALS: BP_SYST 109
[2022-05-31] MEDS: LIDOcaine 5% patch TP SCH (10:13)
[2022-05-31] MEDS: docusate sod 100mg capsule PO SCH (10:13)
[2022-05-31] MEDS: metoclopramide 10mg tablet PO SCH (10:14)
[2022-05-31] MEDS: pantoprazole 40mg Tablet.DR PO SCH (10:14)
[2022-05-31] MEDS: apixaban 5mg tablet PO SCH (10:14)
== END 2022-05-31 12:55 | disposition home or self-care (01) | DRG 201 ==
LOC: ER 17:29 → UNDOADMIN 19:50 → ED HOLD 19:50 → PCU 3S 05-30 06:12
PROVIDERS: ADMIT Internal Medicine; ATTEND Family Medicine
DX: I48.91 Unspecified atrial fibrillation (principal); I27.20 Pulmonary hypertension, unspecified; E11.9 Type 2 diabetes mellitus without complications; J44.9 Chronic obstructive pulmonary disease, unspecified; I10 Essential (primary) hypertension; I25.10 Atherosclerotic heart disease of native coronary artery without angina pectoris; F41.9 Anxiety disorder, unspecified; R60.9 Edema, unspecified; G89.29 Other chronic pain; M19.90 Unspecified osteoarthritis, unspecified site; M54.9 Dorsalgia, unspecified; Z20.822 Contact with and (suspected) exposure to COVID-19; Z28.310 Unvaccinated for COVID-19; Z82.3 Family history of stroke; I25.2 Old myocardial infarction; Z82.49 Family history of ischemic heart disease and other diseases of the circulatory system; Z79.01 Long term (current) use of anticoagulants; Z87.891 Personal history of nicotine dependence; Z91.19 Patient's noncompliance with other medical treatment and regimen; Z56.0 Unemployment, unspecified; Z79.82 Long term (current) use of aspirin; Z88.5 Allergy status to narcotic agent; Z88.0 Allergy status to penicillin; Z91.09 Other allergy status, other than to drugs and biological substances; Z87.440 Personal history of urinary (tract) infections; Z90.49 Acquired absence of other specified parts of digestive tract; Z86.16 Personal history of COVID-19; Z79.899 Other long term (current) drug therapy
CPT/HCPCS: 36415; 71045; 80053; 81003; 83036; 83735; 83880; 84132; 84443; 84484; 85025; 85610; 85730; 87081; 87635; 93005; 93306; 94640; 94760; 96360; 99291; G0378; J1160; J1644; J1940; J2405; J3490; J7030; J7040

== ENCOUNTER 2024-08-14 13:37 | Emergency (ER) | payer MEDICAID ==
[~2024-08-14] VITALS: Ht 172.7 cm; Wt 91.4 kg
[~2024-08-14 13:37] MED LIST changes: +ALBU2.5V10 NEB; +APIX5TAB3 PO; -ASPI-1071 PO; +BUDE0.5A3 NEB; +CELE-148 PO; +FURO20TA4 PO; +GLIP1TAB6 PO; +HYDR-3972 PO; -HYDR-3973 PO; +LIDO700A47 TOP; +METO-395 PO; +METO10TA3 PO; +NITR0.4T48 SL; -NITR0.4T51 SL; +OMEP40CA21 PO; +POTA8TAB69 PO; +TIOT4MIS2 PO
[2024-08-14 13:51] VITALS: TEMP 97.6
[2024-08-14 14:09] LABS: BASOPHILS # (AUTO) 0.1 X10'3 (0-0.2); BASOPHILS % (AUTO) 0.7 % (0-1); EOSINOPHILS # (AUTO) 0.2 X10'3 (0-0.9); EOSINOPHILS % (AUTO) 1.7 % (0-6); HEMATOCRIT 46.6 % (35.0-45.0); HEMOGLOBIN 15.9 g/dl (12.0-16.0); LYMPHOCYTES # (AUTO) 3.2 X10'3 (1.1-4.8); LYMPHOCYTES % (AUTO) 35.9 % (21-51); MEAN CORPUSCULAR HEMOGLOBIN 30.7 PG (27.0-31.0); MEAN CORPUSCULAR HGB CONC 34.2 g/dL (33.0-36.5); MEAN CORPUSCULAR VOLUME 89.7 FL (78-98); MEAN PLATELET VOLUME 8.5 FL (7.4-10.4); MONOCYTES # (AUTO) 0.6 X10'3 (0-0.9); MONOCYTES % (AUTO) 6.4 % (2-12); NEUTROPHILS # (AUTO) 4.9 X10'3 (1.8-7.7); NEUTROPHILS % (AUTO) 55.3 % (42-75); PLATELET COUNT 256 X10'3 (140-440); WHITE BLOOD COUNT 8.9 X10'3 (4.5-11.0)
[2024-08-14 14:36] LABS: ALANINE AMINOTRANSFERASE 35 U/L (12-78); ALBUMIN 4.1 G/DL (3.4-5.0); ALBUMIN/GLOBULIN RATIO 1.2 (1.1-1.5); ALKALINE PHOSPHATASE 156 IU/L (46-116); ANION GAP 11 (8-16); ASPARTATE AMINO TRANSFERASE 14 U/L (10-37); BILIRUBIN,TOTAL 0.3 MG/DL (0.1-1.0); BLOOD UREA NITROGEN 17 MG/DL (7-18); BUN/CREATININE RATIO 19.8 (10.0-20.0); CHLORIDE 106 MMOL/L (99-107); CREATININE 0.86 MG/DL (0.40-0.90); GLUCOSE 264 MG/DL (70-104); POTASSIUM 4.3 MMOL/L (3.5-5.1); PRO BRAIN NATRIURETIC PEPTIDE 34 PG/ML (0-125); SODIUM 139 MMOL/L (135-145); TOTAL CARBON DIOXIDE 22.1 MMOL/L (24-32); TOTAL PROTEIN 7.5 G/DL (6.4-8.2); eCRCL 69 ML/MIN; eGFR 67 ML/MIN
[2024-08-14 17:34] VITALS: BP 127/79; PULSE 76; RESP 16; O2SAT 95
== END 2024-08-14 17:39 | disposition home or self-care (01) ==
LOC: ER 13:37
DX: R07.9 Chest pain, unspecified (principal); R06.02 Shortness of breath; I10 Essential (primary) hypertension; I48.91 Unspecified atrial fibrillation; I25.10 Atherosclerotic heart disease of native coronary artery without angina pectoris; I25.2 Old myocardial infarction; Z88.0 Allergy status to penicillin; Z88.5 Allergy status to narcotic agent; Z88.8 Allergy status to other drugs, medicaments and biological substances; Z87.440 Personal history of urinary (tract) infections; Z90.49 Acquired absence of other specified parts of digestive tract
CPT/HCPCS: 36415; 71045; 80053; 83880; 84484; 85025; 93005; 99285

== ENCOUNTER 2024-08-21 18:07 | Emergency (ER) | payer MEDICAID ==
[~2024-08-21] VITALS: Ht 172.7 cm; Wt 94.4 kg
[2024-08-21 19:15] LABS: BASOPHILS # (AUTO) 0.1 X10'3 (0-0.2); BASOPHILS % (AUTO) 0.8 % (0-1); EOSINOPHILS # (AUTO) 0.1 X10'3 (0-0.9); EOSINOPHILS % (AUTO) 1.5 % (0-6); HEMATOCRIT 41.2 % (35.0-45.0); HEMOGLOBIN 13.7 g/dl (12.0-16.0); LYMPHOCYTES # (AUTO) 3.5 X10'3 (1.1-4.8); LYMPHOCYTES % (AUTO) 36.4 % (21-51); MEAN CORPUSCULAR HGB CONC 33.2 g/dL (33.0-36.5); MEAN CORPUSCULAR VOLUME 90.2 FL (78-98); MEAN PLATELET VOLUME 8.4 FL (7.4-10.4); MONOCYTES # (AUTO) 0.6 X10'3 (0-0.9); MONOCYTES % (AUTO) 5.9 % (2-12); NEUTROPHILS # (AUTO) 5.3 X10'3 (1.8-7.7); NEUTROPHILS % (AUTO) 55.4 % (42-75); PLATELET COUNT 222 X10'3 (140-440); RED BLOOD COUNT 4.57 X10'6 (4.20-5.60); WHITE BLOOD COUNT 9.5 X10'3 (4.5-11.0)
[2024-08-21 19:27] LABS: ALANINE AMINOTRANSFERASE 35 U/L (12-78); ALBUMIN 3.5 G/DL (3.4-5.0); ALBUMIN/GLOBULIN RATIO 1.2 (1.1-1.5); ALKALINE PHOSPHATASE 125 IU/L (46-116); ANION GAP 10 (8-16); ASPARTATE AMINO TRANSFERASE 15 U/L (10-37); BILIRUBIN,TOTAL 0.3 MG/DL (0.1-1.0); BLOOD UREA NITROGEN 18 MG/DL (7-18); BUN/CREATININE RATIO 21.2 (10.0-20.0); CALCIUM 8.7 MG/DL (8.5-10.1); CHLORIDE 104 MMOL/L (99-107); CREATININE 0.85 MG/DL (0.40-0.90); GLUCOSE 275 MG/DL (70-104); POTASSIUM 3.8 MMOL/L (3.5-5.1); SODIUM 138 MMOL/L (135-145); TOTAL CARBON DIOXIDE 24.2 MMOL/L (24-32); TOTAL PROTEIN 6.4 G/DL (6.4-8.2); eCRCL 69 ML/MIN; eGFR 68 ML/MIN
[2024-08-21 19:30] LABS: BILIRUBIN,URINE NEGATIVE (Neg); CLARITY,URINE CLEAR (Clear); COLOR,URINE YELLOW (Yellow); GLUCOSE, URINE >=1000 mg/dl (Neg); KETONES,URINE NEGATIVE (Neg); LEUKOCYTE ESTERASE ,URINE NEGATIVE (Neg); NITRITES, URINE NEGATIVE (Neg); OCCULT BLOOD,URINE NEGATIVE (Neg); PROTEIN,URINE NEGATIVE (Neg); UROBILINOGEN,URINE 0.2 E.U/dL (0.2-1.0)
[2024-08-21 19:40] LABS: UA COLLECTION TYPE CLN CATCH MIDSTREAM
[2024-08-21 19:45] LABS: SQUAMOUS EPITHELIAL CELL,UR FEW /LPF (FEW)
[2024-08-21 19:46] LABS: BACTERIA,URINE FEW /HPF (Neg); RBC,URINE 0-2 /HPF (0-2); WBC,URINE 0-4 /HPF (0-4)
[2024-08-21] MEDS ORDERED: ketorolac trometh 15mg/ml vial 15 MG/ML ML IM ONE (20:05)
[2024-08-21] MEDS: HYDROcodone/acetaminophen 10/325mg tab PO ONE ×2 (20:20→22:16)
[2024-08-21 22:23] VITALS: BP 114/72; PULSE 72; RESP 14; TEMP 98.4; O2SAT 94
== END 2024-08-21 22:25 | disposition home or self-care (01) ==
LOC: ER 18:09
DX: M48.061 Spinal stenosis, lumbar region without neurogenic claudication (principal); I48.91 Unspecified atrial fibrillation; I25.10 Atherosclerotic heart disease of native coronary artery without angina pectoris; I25.2 Old myocardial infarction; M19.90 Unspecified osteoarthritis, unspecified site; G89.29 Other chronic pain; I10 Essential (primary) hypertension; Z88.5 Allergy status to narcotic agent; Z88.6 Allergy status to analgesic agent; Z88.0 Allergy status to penicillin; Z91.018 Allergy to other foods; Z79.899 Other long term (current) drug therapy; Z88.8 Allergy status to other drugs, medicaments and biological substances; Z87.440 Personal history of urinary (tract) infections; Z90.49 Acquired absence of other specified parts of digestive tract
CPT/HCPCS: 36415; 72131; 80053; 81001; 85025; 99284

== ENCOUNTER 2024-08-24 02:37 | Emergency (ER) | payer MEDICAID ==
[~2024-08-24] VITALS: Ht 172.7 cm; Wt 92.4 kg
[2024-08-24] MEDS: normal saline 1000ML IV soln IVB ONE (03:12)
[2024-08-24] MEDS: ondansetron/PF 4mg/2ml inj IV ONE ×2 (03:12→05:27)
[2024-08-24 03:27] LABS: BASOPHILS % (AUTO) 0.2 % (0-1); EOSINOPHILS # (AUTO) 0.1 X10'3 (0-0.9); HEMATOCRIT 48.6 % (35.0-45.0); HEMOGLOBIN 16.2 g/dl (12.0-16.0); LYMPHOCYTES # (AUTO) 0.8 X10'3 (1.1-4.8); LYMPHOCYTES % (AUTO) 7.6 % (21-51); MEAN CORPUSCULAR HEMOGLOBIN 29.9 PG (27.0-31.0); MEAN CORPUSCULAR HGB CONC 33.3 g/dL (33.0-36.5); MEAN CORPUSCULAR VOLUME 89.8 FL (78-98); MEAN PLATELET VOLUME 8.2 FL (7.4-10.4); MONOCYTES # (AUTO) 0.4 X10'3 (0-0.9); MONOCYTES % (AUTO) 3.5 % (2-12); NEUTROPHILS # (AUTO) 8.9 X10'3 (1.8-7.7); NEUTROPHILS % (AUTO) 87.7 % (42-75); PLATELET COUNT 257 X10'3 (140-440); RED BLOOD COUNT 5.41 X10'6 (4.20-5.60); RED CELL DISTRIBUTION WIDTH 14.3 % (11.5-14.5); WHITE BLOOD COUNT 10.1 X10'3 (4.5-11.0)
[2024-08-24 03:47] LABS: ALANINE AMINOTRANSFERASE 42 U/L (12-78); ALBUMIN/GLOBULIN RATIO 1.2 (1.1-1.5); ALKALINE PHOSPHATASE 104 IU/L (46-116); ANION GAP 11 (8-16); ASPARTATE AMINO TRANSFERASE 23 U/L (10-37); BILIRUBIN,TOTAL 0.5 MG/DL (0.1-1.0); BLOOD UREA NITROGEN 27 MG/DL (7-18); BUN/CREATININE RATIO 28.1 (10.0-20.0); CALCIUM 8.4 MG/DL (8.5-10.1); CHLORIDE 105 MMOL/L (99-107); CREATININE 0.96 MG/DL (0.40-0.90); GLUCOSE 256 MG/DL (70-104); LIPASE 25 U/L (16-77); SODIUM 138 MMOL/L (135-145); TOTAL PROTEIN 7.4 G/DL (6.4-8.2); eCRCL 61 ML/MIN; eGFR 59 ML/MIN
[2024-08-24 03:49] LABS: POTASSIUM 4.4 MMOL/L (3.5-5.1)
[2024-08-24 04:27] LABS: BILIRUBIN,URINE NEGATIVE (Neg); CLARITY,URINE CLEAR (Clear); COLOR,URINE YELLOW (Yellow); GLUCOSE, URINE 250 mg/dl (Neg); KETONES,URINE NEGATIVE (Neg); LEUKOCYTE ESTERASE ,URINE NEGATIVE (Neg); NITRITES, URINE NEGATIVE (Neg); OCCULT BLOOD,URINE NEGATIVE (Neg); PH,URINE 5.5 (4.8-8.0); PROTEIN,URINE TRACE mg/dl (Neg); UA COLLECTION TYPE CLN CATCH MIDSTREAM; UROBILINOGEN,URINE 0.2 E.U/dL (0.2-1.0)
[2024-08-24 04:44] LABS: AMORPHOUS URATES 1+; BACTERIA,URINE FEW /HPF (Neg); MUCUS STRANDS MODERATE /LPF (Neg); RBC,URINE NONE SEEN /HPF (0-2); SQUAMOUS EPITHELIAL CELL,UR MODERATE /LPF (FEW); WBC,URINE 0-4 /HPF (0-4)
[2024-08-24] MEDS: loperamide 2mg capsule PO ONE (05:28)
[2024-08-24] MEDS: normal saline 1000ml 1,000 ML IV ONE (05:31)
[2024-08-24] MEDS: acetaminophen 1,000mg/100ml IV 100 ML IV ONE (05:50)
[2024-08-24 06:21] LABS: C DIFF ANTIGEN NEGATIVE (NEGATIVE); C DIFF SPECIMEN=DIARRHEA? ACCEPTABLE; C DIFFICILE TOXINS A&B NEGATIVE (Neg)
[2024-08-24] MEDS ORDERED: LOPE2CAP PO (06:29)
[2024-08-24] MEDS ORDERED: ONDA-243 PO (06:29)
[2024-08-24 07:20] VITALS: BP 113/78; PULSE 77; RESP 12; TEMP 98.5; O2SAT 96
== END 2024-08-24 07:23 | disposition home or self-care (01) ==
LOC: ER 02:38
DX: K52.9 Noninfective gastroenteritis and colitis, unspecified (principal); Z20.822 Contact with and (suspected) exposure to COVID-19; R73.9 Hyperglycemia, unspecified; I48.91 Unspecified atrial fibrillation; I25.10 Atherosclerotic heart disease of native coronary artery without angina pectoris; I25.2 Old myocardial infarction; G89.29 Other chronic pain; I10 Essential (primary) hypertension; M19.90 Unspecified osteoarthritis, unspecified site; F41.9 Anxiety disorder, unspecified; Z88.0 Allergy status to penicillin; Z88.5 Allergy status to narcotic agent; Z88.8 Allergy status to other drugs, medicaments and biological substances; Z79.899 Other long term (current) drug therapy; Z79.2 Long term (current) use of antibiotics; Z79.1 Long term (current) use of non-steroidal anti-inflammatories (NSAID); Z90.49 Acquired absence of other specified parts of digestive tract; Z87.440 Personal history of urinary (tract) infections
CPT/HCPCS: 36415; 80053; 81001; 82948; 83690; 85025; 87324; 87449; 87502; 87503; 87811; 96361; 96374; 96375; 96376; 99285; J0131; J2405; J7030

== ENCOUNTER 2024-12-12 13:54 | Emergency (ER) | payer MEDICAID ==
[~2024-12-12] VITALS: Ht 172.7 cm; Wt 91.8 kg
[~2024-12-12 13:54] MED LIST changes: +LOPE2CAP PO; +ONDA-243 PO
[2024-12-12 14:04] VITALS: TEMP 98.2
[2024-12-12 16:20] LABS: BASOPHILS # (AUTO) 0.1 X10'3 (0-0.2); EOSINOPHILS # (AUTO) 0.4 X10'3 (0-0.9); EOSINOPHILS % (AUTO) 4.5 % (0-6); HEMATOCRIT 45.2 % (35.0-45.0); HEMOGLOBIN 15.1 g/dl (12.0-16.0); LYMPHOCYTES % (AUTO) 30.4 % (21-51); MEAN CORPUSCULAR HEMOGLOBIN 30.1 PG (27.0-31.0); MEAN CORPUSCULAR HGB CONC 33.5 g/dL (33.0-36.5); MEAN CORPUSCULAR VOLUME 89.8 FL (78-98); MEAN PLATELET VOLUME 8.3 FL (7.4-10.4); MONOCYTES # (AUTO) 0.5 X10'3 (0-0.9); MONOCYTES % (AUTO) 5.2 % (2-12); NEUTROPHILS # (AUTO) 5.8 X10'3 (1.8-7.7); NEUTROPHILS % (AUTO) 58.9 % (42-75); PLATELET COUNT 249 X10'3 (140-440); RED BLOOD COUNT 5.03 X10'6 (4.20-5.60); RED CELL DISTRIBUTION WIDTH 13.3 % (11.5-14.5); WHITE BLOOD COUNT 9.9 X10'3 (4.5-11.0)
[2024-12-12 16:38] LABS: ALANINE AMINOTRANSFERASE 33 U/L (12-78); ALBUMIN 3.6 G/DL (3.4-5.0); ALKALINE PHOSPHATASE 156 IU/L (46-116); ANION GAP 5 (8-16); ASPARTATE AMINO TRANSFERASE 11 U/L (10-37); BILIRUBIN,TOTAL 0.2 MG/DL (0.1-1.0); BLOOD UREA NITROGEN 15 MG/DL (7-18); BUN/CREATININE RATIO 19.5 (10.0-20.0); CALCIUM 8.9 MG/DL (8.5-10.1); CHLORIDE 104 MMOL/L (99-107); CREATININE 0.77 MG/DL (0.40-0.90); GLUCOSE 390 MG/DL (70-104); POTASSIUM 4.5 MMOL/L (3.5-5.1); SODIUM 139 MMOL/L (135-145); TOTAL CARBON DIOXIDE 30.2 MMOL/L (24-32); TOTAL PROTEIN 7.2 G/DL (6.4-8.2); eCRCL 76 ML/MIN; eGFR 76 ML/MIN
[2024-12-12 16:49] LABS: PRO BRAIN NATRIURETIC PEPTIDE 33 PG/ML (0-125)
[2024-12-12] MEDS: naproxen 500mg tablet PO ONE (17:24)
[2024-12-12 18:13] VITALS: BP 140/95; PULSE 88; RESP 16; O2SAT 96
[2024-12-12] MEDS ORDERED: NAPR-56 PO (18:16)
== END 2024-12-12 18:20 | disposition home or self-care (01) ==
LOC: ER 13:55
DX: M25.512 Pain in left shoulder (principal); M79.605 Pain in left leg; R07.89 Other chest pain; M79.602 Pain in left arm; I10 Essential (primary) hypertension; I25.10 Atherosclerotic heart disease of native coronary artery without angina pectoris; I48.91 Unspecified atrial fibrillation; J44.9 Chronic obstructive pulmonary disease, unspecified; M19.90 Unspecified osteoarthritis, unspecified site; F41.9 Anxiety disorder, unspecified; Z88.0 Allergy status to penicillin; Z88.5 Allergy status to narcotic agent; Z88.8 Allergy status to other drugs, medicaments and biological substances; Z90.49 Acquired absence of other specified parts of digestive tract; Z98.890 Other specified postprocedural states
CPT/HCPCS: 36415; 71045; 80053; 82948; 83880; 84484; 85025; 93005; 99285

== ENCOUNTER 2025-02-25 17:16 | Emergency (ER) | payer MEDICAID ==
[~2025-02-25] VITALS: Ht 172.7 cm; Wt 92.7 kg
[2025-02-25 17:59] LABS: BASOPHILS # (AUTO) 0.1 X10'3 (0-0.2); BASOPHILS % (AUTO) 0.7 % (0-1); EOSINOPHILS # (AUTO) 0.5 X10'3 (0-0.9); EOSINOPHILS % (AUTO) 4.6 % (0-6); HEMATOCRIT 43.7 % (35.0-45.0); HEMOGLOBIN 14.4 g/dl (12.0-16.0); LYMPHOCYTES # (AUTO) 3.3 X10'3 (1.1-4.8); LYMPHOCYTES % (AUTO) 30.9 % (21-51); MEAN CORPUSCULAR HEMOGLOBIN 29.3 PG (27.0-31.0); MEAN CORPUSCULAR VOLUME 88.9 FL (78-98); MEAN PLATELET VOLUME 8.2 FL (7.4-10.4); MONOCYTES # (AUTO) 0.6 X10'3 (0-0.9); MONOCYTES % (AUTO) 5.4 % (2-12); NEUTROPHILS # (AUTO) 6.3 X10'3 (1.8-7.7); NEUTROPHILS % (AUTO) 58.4 % (42-75); PLATELET COUNT 244 X10'3 (140-440); RED BLOOD COUNT 4.91 X10'6 (4.20-5.60); RED CELL DISTRIBUTION WIDTH 14.2 % (11.5-14.5); WHITE BLOOD COUNT 10.7 X10'3 (4.5-11.0)
[2025-02-25 18:26] LABS: ALANINE AMINOTRANSFERASE 41 U/L (12-78); ALBUMIN 3.5 G/DL (3.4-5.0); ALBUMIN/GLOBULIN RATIO 1.2 (1.1-1.5); ALKALINE PHOSPHATASE 114 IU/L (46-116); ANION GAP 11 (8-16); ASPARTATE AMINO TRANSFERASE 16 U/L (10-37); BILIRUBIN,TOTAL 0.3 MG/DL (0.1-1.0); BLOOD UREA NITROGEN 13 MG/DL (7-18); CALCIUM 8.4 MG/DL (8.5-10.1); CHLORIDE 107 MMOL/L (99-107); CREATININE 0.81 MG/DL (0.40-0.90); GLUCOSE 281 MG/DL (70-104); POTASSIUM 3.8 MMOL/L (3.5-5.1); PRO BRAIN NATRIURETIC PEPTIDE 56 PG/ML (0-125); SODIUM 143 MMOL/L (135-145); TOTAL CARBON DIOXIDE 24.9 MMOL/L (24-32); TOTAL PROTEIN 6.5 G/DL (6.4-8.2); eCRCL 73 ML/MIN; eGFR 72 ML/MIN
[2025-02-25] MEDS ORDERED: GABA-530 PO (18:59)
[2025-02-25 19:13] VITALS: BP 115/62; PULSE 86; RESP 18; TEMP 97.7; O2SAT 95
== END 2025-02-25 19:20 | disposition home or self-care (01) ==
LOC: ER 17:17
DX: E11.42 Type 2 diabetes mellitus with diabetic polyneuropathy (principal); E11.65 Type 2 diabetes mellitus with hyperglycemia; M54.9 Dorsalgia, unspecified; I10 Essential (primary) hypertension; I25.10 Atherosclerotic heart disease of native coronary artery without angina pectoris; I48.91 Unspecified atrial fibrillation; J44.9 Chronic obstructive pulmonary disease, unspecified; M19.90 Unspecified osteoarthritis, unspecified site; Z88.0 Allergy status to penicillin; Z88.5 Allergy status to narcotic agent; Z88.8 Allergy status to other drugs, medicaments and biological substances
CPT/HCPCS: 36415; 71045; 80053; 82948; 83880; 84484; 85025; 93005; 99285

== ENCOUNTER 2025-03-12 15:02 | Emergency (ER) | payer MEDICAID ==
[~2025-03-12] VITALS: Ht 172.7 cm; Wt 93.8 kg
[~2025-03-12 15:02] MED LIST changes: +GABA-530 PO
[2025-03-12 16:48] LABS: BASOPHILS # (AUTO) 0.1 X10'3 (0-0.2); BASOPHILS % (AUTO) 0.8 % (0-1); EOSINOPHILS # (AUTO) 0.4 X10'3 (0-0.9); EOSINOPHILS % (AUTO) 4.4 % (0-6); HEMATOCRIT 44.9 % (35.0-45.0); HEMOGLOBIN 15.3 g/dl (12.0-16.0); LYMPHOCYTES # (AUTO) 2.8 X10'3 (1.1-4.8); LYMPHOCYTES % (AUTO) 29.2 % (21-51); MEAN CORPUSCULAR HEMOGLOBIN 30.2 PG (27.0-31.0); MEAN CORPUSCULAR HGB CONC 34.2 g/dL (33.0-36.5); MEAN CORPUSCULAR VOLUME 88.3 FL (78-98); MEAN PLATELET VOLUME 8.2 FL (7.4-10.4); MONOCYTES # (AUTO) 0.5 X10'3 (0-0.9); MONOCYTES % (AUTO) 5.2 % (2-12); NEUTROPHILS # (AUTO) 5.8 X10'3 (1.8-7.7); NEUTROPHILS % (AUTO) 60.4 % (42-75); PLATELET COUNT 237 X10'3 (140-440); RED BLOOD COUNT 5.08 X10'6 (4.20-5.60); RED CELL DISTRIBUTION WIDTH 13.9 % (11.5-14.5); WHITE BLOOD COUNT 9.6 X10'3 (4.5-11.0)
--- NOTE | 2025-03-12 17:00 | RADIOLOGY REPORT ---
CHEST RADIOGRAPH Indication: CP Technique: Single frontal view of the chest was obtained Comparison: DI CHEST,SINGLE VIEW on DOS: 02/25/25, FINDINGS: Lines and Tubes: None Lungs and Pleura: There is mild pulmonary vascular congestion. No focal consolidation. No effusion. No pneumothorax. Cardiomediastinal contours: Unremarkable Bones: No acute osseous abnormality. IMPRESSION: 1. Mild pulmonary vascular congestion. No focal consolidation.
[2025-03-12 17:05] LABS: ALANINE AMINOTRANSFERASE 32 U/L (12-78); ALBUMIN 3.6 G/DL (3.4-5.0); ALBUMIN/GLOBULIN RATIO 1.1 (1.1-1.5); ALKALINE PHOSPHATASE 157 IU/L (46-116); ANION GAP 8 (8-16); ASPARTATE AMINO TRANSFERASE 15 U/L (10-37); BILIRUBIN,TOTAL 0.2 MG/DL (0.1-1.0); BLOOD UREA NITROGEN 17 MG/DL (7-18); BUN/CREATININE RATIO 22.1 (10.0-20.0); CALCIUM 8.6 MG/DL (8.5-10.1); CHLORIDE 105 MMOL/L (99-107); CREATININE 0.77 MG/DL (0.40-0.90); GLUCOSE 372 MG/DL (70-104); POTASSIUM 4.1 MMOL/L (3.5-5.1); SODIUM 139 MMOL/L (135-145); TOTAL CARBON DIOXIDE 25.7 MMOL/L (24-32); TOTAL PROTEIN 6.8 G/DL (6.4-8.2); eCRCL 76 ML/MIN; eGFR 76 ML/MIN
[2025-03-12 17:13] LABS: PRO BRAIN NATRIURETIC PEPTIDE < 30 PG/ML (0-125)
[2025-03-12] MEDS ORDERED: SEMA1PEN3 SQ (17:53)
[2025-03-12] MEDS ORDERED: BUDE10.22 PO (17:53)
[2025-03-12] MEDS: insulin regular, human 10 units/0.1 ml syringe IV ONE (18:48)
[2025-03-12] MEDS: normal saline 1000ML IV soln IVB ONE (18:50)
[2025-03-12 19:10] LABS: ETHANOL < 10 MG/DL (<10); MAGNESIUM 2.2 MG/DL (1.5-2.4)
--- NOTE | 2025-03-12 19:16 | Physician Documentation ---
History of Present Illness ~ Chief Complaint: Rapid Heartbeat Stated Complaint: HIGH HEART RATE Time Seen by MD: 18:18 OK to notify your PCP?: Yes Primary Medical Doctor: dr michael rehman Source: patient, RN/, RN notes reviewed, old records Mode of Arrival: POV Exam Limitations: no limitations HPI 64 year old female presents to the emergency department for complaints of a rapid heartbeat that happened 30 minutes prior to arrival to the hospital. She states that she had noticed a rate of 114bpm. Additionally she complains of associated chest pain and shortness of breath with her afib. She states that she had 4 instances of afib in the past month. Upon arriving to the emergency department she was informed that her glucose level was 300. She was given medication but is now complaining of burning abdominal pain. She states that she sees a machine heel builder at [facility]. Patient denies any other associated symptoms at this time. Patient denies any other alleviating or exacerbating factors. Medication Reconciliation Allergies: Coded Allergies: codeine (Verified Allergy, Severe, 12/12/24) ketorolac (Verified Allergy, Severe, 12/12/24) Penicillins (Verified Allergy, Intermediate, 12/12/24) Coconut (Verified Allergy, Unknown, 03/12/25) Scheduled Apixaban (Eliquis), 5 MG PO BID Budesonide (Budesonide), 0.5 MG NEB BID, (Reported) Celecoxib (Celecoxib), 1 CAP PO DAILY, (Reported) Furosemide (Furosemide), 1 TAB PO BID, (Reported) Gabapentin (Gabapentin), 1 CAP PO Q8H Glipizide/Metformin Hcl (Glipizide-Metformin 5-500 Mg), 1 EACH PO DAILY Lidocaine (Lidocaine), 1 PATCH TOP DAILY, (Reported) Loperamide Hcl (Loperamide), 2 CAP PO Q6H Metoclopramide Hcl* (Metoclopramide Hcl*), 1 TAB PO QID, (Reported) Metoprolol Succinate (Metoprolol Succinate), 25 MG PO DAILY Omeprazole (Prilosec), 1 CAP PO DAILY, (Reported) Potassium Chloride (Klor-Con 8), 1 TAB PO DAILY, (Reported) Semaglutide (Ozempic), 1 MG SQ Q7D, (Reported) Tiotropium [place] (Spiriva Respimat), 2 PUFFS PO DAILY, (Reported) Scheduled PRN Albuterol Sulfate (Albuterol Sulfate), 1 VIAL NEB TID PRN for SOB or wheezing, ( Reported) Budesonide/Formoterol Fumarate (Symbicort 80-4.5 Mcg Inhaler), 2 PUFFS PO Q4H PRN for cough, (Reported) Hydrocodone Bit/Acetaminophen (Hydrocodon-Acetaminophn 10-325 tablet), 1 TAB PO Q6H PRN for pain, (Reported) Nitroglycerin (Nitroglycerin), 1 TAB SL Q5MIN PRN for Chest pain Q5min PRNx3- call MD, (Reported) ONDANSETRON ODT 4mg tablet (Ondansetron Odt), 1 TAB PO Q6H PRN PRN for nausea/vomiting Past Medical History Past Medical History: Atrial Fibrillation, Coronary Artery Disease, Hypertension, Myocardial Infarction, COPD, UTI, Arthritis, Chronic Back Pain, Anxiety Past Surgical History: cholecystectomy, orthopedic surgeries Patient History: Patient reports no known family medical history. Smoking Status: Former smoker Alcohol Use: Occasionally Drug Use: none Lives with: S/O Lives In: Home Occupation: unemployed Review of Systems All Other Systems at this time: Reviewed and Negative ROS As stated above in the HPI, otherwise all systems are reviewed and negative. Physical Exam Vital Signs: RN Vital Signs have been reviewed: Yes, Temperature: 98.6, Source: Oral, Heart Rate: 80, Respiratory Rate: 16, BP: 123/80, Pulse Oximetry: 94, Weight: 93.800 Oxygen Flow Rate: 0 Pulse Oximetry Reflects: adequate oxygenation Physical Exam General: The patient is well developed, well nourished, nontoxic appearing and is in no acute distress. Skin: [place], warm and dry with no rashes. HEENT: Head was normocephalic and atraumatic. Eyes - pupils equal, round, reactive to light and accommodation. Extraocular movements were intact. Conjunctivae were nonicteric. Ears - bilateral tympanic membranes were normal. The mouth and oropharynx were clear with moist mucous membranes. There were no pharyngeal exudates or erythema. Neck: Supple and nontender. There was no jugular venous distention, lymphadenopathy, thyromegaly or masses. Chest: Clear to auscultation bilaterally without wheezes, rales or rhonchi. No accessory muscle use. No dullness to percussion. Heart: Rate regular and rhythmic. S1, S2. No murmurs. Palpation of the chest wall was normal. No rubs or thrills. Abdomen: Soft, nontender and nondistended. Positive bowel sounds. No guarding or rebound. No hepatosplenomegaly or palpable masses. Extremities: No cyanosis, clubbing or edema. The patient moves all extremities. Pulses were equal and symmetric. Neurologic: Cranial nerves II-XII were intact. Sensation was intact to light touch throughout. Motor strength was 5/5 in all four extremities. Deep tendon reflexes were intact in both upper and lower extremities. Psychologic: The patient was oriented to person, place and time. The patient demonstrated appropriate judgement and insight. Progress Results/Orders Results/Orders Completed Orders - HUANG EM MD Insulin Regular, Human (Humulin R 10 Uni (03/12/25 18:35) Normal Saline 1000ml (Sodium Chloride 10 (03/12/25 18:40) Drug Screen, Urine (03/12/25 18:38) Sotalol Tablet (Betapace) (03/12/25 19:30) Diphenhydramine Inj (Benadryl Inj.) (03/12/25 20:35) Laboratory Tests Test 03/12/25 16:32 03/12/25 18:17 03/12/25 18:57 03/12/25 19:16 White Blood Count 9.6 Red Blood Count 5.08 Hemoglobin 15.3 Hematocrit 44.9 Mean Corpuscular Volume 88.3 Mean Corpuscular Hemoglobin 30.2 Mean Corpuscular Hemoglobin Concent 34.2 Red Cell Distribution Width 13.9 Platelet Count 237 Mean Platelet Volume 8.2 Neutrophils (%) (Auto) 60.4 Lymphocytes (%) (Auto) 29.2 Monocytes (%) (Auto) 5.2 Eosinophils (%) (Auto) 4.4 Basophils (%) (Auto) 0.8 Neutrophils # (Auto) 5.8 Lymphocytes # (Auto) 2.8 Monocytes # (Auto) 0.5 Eosinophils # (Auto) 0.4 Basophils # (Auto) 0.1 CBC Comment Sodium Level 139 Potassium Level 4.1 Chloride Level 105 Carbon Dioxide Level 25.7 Anion Gap 8 Blood Urea Nitrogen 17 Creatinine 0.77 Estimated GFR/1.73 m2 76 BUN/Creatinine Ratio 22.1 H Glucose Level 372 H Calcium Level 8.6 Total Bilirubin 0.2 Aspartate Amino Transf (AST/SGOT) 15 Alanine Aminotransferase (ALT/SGPT) 32 Alkaline Phosphatase 157 H Troponin I High Sensitivity 5 6 7 Pro-B-Type Natriuretic Peptide < 30 Total Protein 6.8 Albumin 3.6 Globulin 3.2 Albumin/Globulin Ratio 1.1 Chemistry Comments Magnesium Level 2.2 Troponin I High Sens Percent Delta 20 16 Troponin I Hi Sens Absolute Change 1 1 Ethyl Alcohol Level < 10 Urine Opiates Screen Negative Urine Methadone Screen Negative Urine Fentanyl Screen Negative Urine Barbiturates Screen Negative Urine Phencyclidine Screen Negative Urine Amphetamines Screen Negative Urine Benzodiazepines Screen Negative Urine Cocaine Screen Negative Urine Cannabinoids Screen Negative Drug Screen Comment Test 03/12/25 20:32 Glucometer 136 H Re-Evaluation Re-Evaluation : Re-Evaluation Time: 21:00 Re-Evaluation: Improved Additional Comment patient was observed to have a reaction to insulin given by hospital stating she felt like her throat was closing. For this she was given Benadryl and has improved. BGL is at 130. Patient was seen and examined. Patient was given reassurance. Patient had laboratory work obtained. Her glucose levels were elevated received some insulin as well as fluids. Laboratory work was obtained and reassuring no electrolyte abnormalities. Patient has paroxysmal AFib and had rapid heart rate prior to arrival which has now resolved. After a negative workup patient was given a dose of sotalol for fact that her heart seems to be a bit irritated at this time to prevent any additional cases of AFib with RVR. Patient was then discharged home to follow up with her regular physician as needed. If any additional palpitations occurs chest pain or any other symptoms return to the ER for re-evaluation. EKG/XRAY/CT/US/VASC/MRI EKG : Additional Comment 1504: EDMD Em interpreted EKG to reveal sinus rhythm at a rate of 92bpm. Patients EKG reveals poor r wave progression with left axis deviation and Q waves in V1-3. Chest X-Ray : Additional Comments CHEST RADIOGRAPH Indication: CP Technique: Single frontal view of the chest was obtained Comparison: DI CHEST,SINGLE VIEW on DOS: 02/25/25, FINDINGS: Lines and Tubes: None Lungs and Pleura: There is mild pulmonary vascular congestion. No focal consolidation. No effusion. No pneumothorax. Cardiomediastinal contours: Unremarkable Bones: No acute osseous abnormality. IMPRESSION: 1. Mild pulmonary vascular congestion. No focal consolidation. Electronically Signed by:AROLDO QUEEN MD Date & Time: 03/12/25 1977 Heart Score: Heart Score Response (Comments) Value History Moderate Suspicious 1 EKG Normal 0 Age 45-64 1 Risk Factors >3 or Hx ASHD 2 Troponin Normal limit 0 Total 4 Medical Decision Making Additional info obtained from: old records Differential Dx:Considerations: Include: angina / SD, atrial dysrhythmia, atrial fibrillation, atrial flutter, MAT, PACs, PSVT, sinus tachycardia, WPW, 1st degree AV block, 2nd degree AVB-type 1, 2nd degree AVB-type 2, 3rd degree AV block, PVCs, torsades de pointes, ventricular fibrillation, ventricular tachycardia, other Differential Dx:Considerations: Include anxiety/panic attack, Include digoxin toxicity, Include electrolyte disorder, Include heart failure, Include hyperthyroidism, Include hyperventilation, Include hypoxia, Include pacemaker malfunction, Include pulmonary embolus, Include renal failure, Include other Departure Time of Disposition: 21:03 Disposition: 01 HOME / SELF CARE / HOMELESS Impression: Primary Impression: Atrial fibrillation with rapid ventricular response Additional Impressions: Proximal Afib Hyperglycemia Condition: Stable Discharge Instructions: Atrial Fibrillation, [id number] Additional Instructions: Patient needs to follow up with [facility] for possible halter monitor or medications to help control atrial fibrillation. Referrals: NO PRIMARY CARE PROVIDER (PCP) Education Educated: Patient Educated regarding: diagnosis, treatment, prognosis, need for follow up Signature Scribe Signature: Scribed for Huang Em MD by Virgilio Sykes . 03/12/25 19:43 Attestation: The note accurately reflects work and decisions made by me.Huang Em MD 03/12/25 19:16 HUANG EM MD March 12, 2025 19:16 VIRGILIO CUMMINGS March 12, 2025 19:43
[2025-03-12 19:48] LABS: URINE AMPHETAMINE SCREEN NEGATIVE (Neg); URINE BARBITUATE SCREEN NEGATIVE (Neg); URINE BENZODIAZEPINES SCREEN NEGATIVE (Neg); URINE CANNABINOID SCREEN NEGATIVE (Neg); URINE COCAINE SCREEN NEGATIVE (Neg); URINE METHADONE SCREEN NEGATIVE (Neg); URINE OPIATE SCREEN NEGATIVE (Neg); URINE PHENCYCLIDINE SCREEN NEGATIVE (Neg)
[2025-03-12] MEDS: sotalol HCl 40mg (1/2 tablet) PO ONE (20:21)
[2025-03-12] MEDS: diphenhydrAMINE 50 mg/ml inj IV ONE (20:39)
[2025-03-12 21:25] VITALS: BP 109/67; PULSE 88; RESP 16; TEMP 98.4; O2SAT 98
--- NOTE | 2025-03-13 06:08 | ELECTROCARDIOGRAPH REPORT ---
[facility] Test Date: 2025-03-12 Test Time: 15:09:30 Pat Name: JOSE GALEAS Department: [facility]- Patient ID: [facility]-[id number] Room: Gender: F [employer]er And Applier: : 1960 Requested By: TANNER PAREDES Order Number: [id number] Reading MD: Dr. Huang Em Measurements Intervals [place] Rate: 92 P: 77 NC: 171 QRS: -32 QRSD: 85 T: 63 QT: 354 QTc: 438 Interpretive Statements Sinus rhythm Left axis deviation Low voltage, precordial leads Anteroseptal infarct, old Electronically Signed On 03-15-2025 15:44:[address] Huang Em Please click the below link to view image of tracing.
== END 2025-03-12 21:31 | disposition home or self-care (01) ==
LOC: ER 15:03
DX: I48.0 Paroxysmal atrial fibrillation (principal); R73.9 Hyperglycemia, unspecified; I10 Essential (primary) hypertension; F41.9 Anxiety disorder, unspecified; I25.10 Atherosclerotic heart disease of native coronary artery without angina pectoris; J44.9 Chronic obstructive pulmonary disease, unspecified; M19.90 Unspecified osteoarthritis, unspecified site; Z88.0 Allergy status to penicillin; Z88.5 Allergy status to narcotic agent; Z88.8 Allergy status to other drugs, medicaments and biological substances; Z90.49 Acquired absence of other specified parts of digestive tract; Z79.899 Other long term (current) drug therapy
CPT/HCPCS: 36415; 71045; 80053; 80305; 80320; 82948; 83735; 83880; 84484; 85025; 93005; 96361; 96374; 96375; 99285; J1200; J1815; J7030

== ENCOUNTER 2025-06-01 16:05 | Emergency (ER) | payer MEDICAID ==
[~2025-06-01] VITALS: Ht 172.7 cm; Wt 91.3 kg
[~2025-06-01 16:05] MED LIST changes: +BUDE10.22 PO; +SEMA1PEN3 SQ
[2025-06-01 16:07] VITALS: TEMP 97.9
[2025-06-01 16:26] LABS: MEAN PLATELET VOLUME 8.1 FL (7.4-10.4); RED CELL DISTRIBUTION WIDTH 13.5 % (11.5-14.5)
[2025-06-01 16:51] LABS: CREATININE 0.96 MG/DL (0.40-0.90); TOTAL CARBON DIOXIDE 23.7 MMOL/L (24-32); eCRCL 61 ML/MIN; eGFR 59 ML/MIN
[2025-06-01 17:05] VITALS: BP 110/72; PULSE 86; O2SAT 96
[2025-06-01 17:16] VITALS: RESP 16
[2025-06-01 17:22] LABS: LEUKOCYTE ESTERASE ,URINE NEGATIVE (Neg); NITRITES, URINE NEGATIVE (Neg); OCCULT BLOOD,URINE NEGATIVE (Neg)
[2025-06-01 17:25] LABS: UA COLLECTION TYPE NON-SPECIFIED
[2025-06-01] MEDS ORDERED: OMEP40CA21 PO (17:34)
--- NOTE | 2025-06-01 17:35 | Physician Documentation ---
History of Present Illness Chief Complaint: Abdominal Pain w/vomiting Stated Complaint: N/V/D Time Seen by MD: 16:17 Primary Medical Doctor: dr michael rehman HPI 64-year-old female presents to the ED with a complaint of GI pain burning and some nausea. She says two days ago she had a GI scope done which indicated that she has a gastritis. She states that she was prescribed something but was unable to pick it up for unknown reasons Denies any diarrhea vomiting headaches Day of Onset: Jun 01, 2025 Medication Reconciliation Allergies: Coded Allergies: codeine (Verified Allergy, Severe, 06/01/25) ketorolac (Verified Allergy, Severe, 06/01/25) Penicillins (Verified Allergy, Intermediate, 06/01/25) Coconut (Verified Allergy, Unknown, 06/01/25) Scheduled Apixaban (Eliquis), 5 MG PO BID Budesonide (Budesonide), 0.5 MG NEB BID, (Reported) Celecoxib (Celecoxib), 1 CAP PO DAILY, (Reported) Furosemide (Furosemide), 1 TAB PO BID, (Reported) Gabapentin (Gabapentin), 1 CAP PO Q8H Glipizide/Metformin Hcl (Glipizide-Metformin 5-500 Mg), 1 EACH PO DAILY Lidocaine (Lidocaine), 1 PATCH TOP DAILY, (Reported) Loperamide Hcl (Loperamide), 2 CAP PO Q6H Metoclopramide Hcl* (Metoclopramide Hcl*), 1 TAB PO QID, (Reported) Metoprolol Succinate (Metoprolol Succinate), 25 MG PO DAILY Omeprazole (Prilosec), 1 CAP PO DAILY, (Reported) Potassium Chloride (Klor-Con 8), 1 TAB PO DAILY, (Reported) Semaglutide (Ozempic), 1 MG SQ Q7D, (Reported) Tiotropium Wallace (Spiriva Respimat), 2 PUFFS PO DAILY, (Reported) Scheduled PRN Albuterol Sulfate (Albuterol Sulfate), 1 VIAL NEB TID PRN for SOB or wheezing, (Reported) Budesonide/Formoterol Fumarate (Symbicort 80-4.5 Mcg Inhaler), 2 PUFFS PO Q4H PRN for cough, (Reported) Hydrocodone Bit/Acetaminophen (Hydrocodon-Acetaminophn 10-325 tablet), 1 TAB PO Q6H PRN for pain, (Reported) Nitroglycerin (Nitroglycerin), 1 TAB SL Q5MIN PRN for Chest pain Q5min PRNx3- call MD, (Reported) ONDANSETRON ODT 4mg tablet (Ondansetron Odt), 1 TAB PO Q6H PRN PRN for nausea/vomiting Past Medical History Past Medical History: Atrial Fibrillation, Coronary Artery Disease, Hypertension, Myocardial Infarction, COPD, UTI, Arthritis, Chronic Back Pain, Anxiety Past Surgical History: cholecystectomy, orthopedic surgeries Patient History: Patient reports no known family medical history. Alcohol Use: Occasionally Drug Use: none Lives with: S/O Lives In: Home Occupation: unemployed Review of Systems All Other Systems at this time: Reviewed and Negative ROS As stated above in the HPI, otherwise all systems are reviewed and negative. Physical Exam Vital Signs: Temperature: 97.9, Source: Temporal, Heart Rate: 86, Respiratory Rate: 16, BP: 110/72, Pulse Oximetry: 96, Weight: 91.350 Oxygen Flow Rate: 0 Physical Exam General: Alert, no apparent distress. Respiratory: Lungs clear, no respiratory distress. Cardiovascular: Regular rate and rhythm, no murmurs. Gastrointestinal: Soft, tender to the midepigastric region Neurologic: Oriented x4. Psychiatric: Normal mood and affect. Progress Results/Orders Results/Orders Completed Orders - NEO MCALLISTER CORE FITTER Normal Saline 1000ml (0.9% Sodium Chlori (06/01/25 17:25) Pantoprazole 40mg Iv (Protonix 40mg Iv) (06/01/25 17:25) Ondansetron Inj. (Zofran 4mg/2ml Vial) (06/01/25 17:25) Vital Signs 06/01/25 06/01/25 06/01/25 16:07 17:05 17:16 Temp 97.9 Pulse 99 86 Resp 20 16 16 B/P (MAP) 132/66 110/72 (85) Pulse Ox 96 96 O2 Flow Rate 0 0 Laboratory Tests Test 06/01/25 16:19 06/01/25 17:09 White Blood Count 10.6 Red Blood Count 5.52 Hemoglobin 16.3 H Hematocrit 48.5 H Mean Corpuscular Volume 87.9 Mean Corpuscular Hemoglobin 29.5 Mean Corpuscular Hemoglobin Concent 33.6 Red Cell Distribution Width 13.5 Platelet Count 258 Mean Platelet Volume 8.1 Neutrophils (%) (Auto) 59.0 Lymphocytes (%) (Auto) 32.0 Monocytes (%) (Auto) 5.2 Eosinophils (%) (Auto) 2.8 Basophils (%) (Auto) 1.0 Neutrophils # (Auto) 6.3 Lymphocytes # (Auto) 3.4 Monocytes # (Auto) 0.5 Eosinophils # (Auto) 0.3 Basophils # (Auto) 0.1 CBC Comment Sodium Level 139 Potassium Level 3.6 Chloride Level 106 Carbon Dioxide Level 23.7 L Anion Gap 9 Blood Urea Nitrogen 24 H Creatinine 0.96 H Estimated GFR/1.73 m2 59 BUN/Creatinine Ratio 25.0 H Glucose Level 203 H Calcium Level 9.0 Total Bilirubin 0.3 Aspartate Amino Transf (AST/SGOT) 10 Alanine Aminotransferase (ALT/SGPT) 39 Alkaline Phosphatase 137 H Total Protein 7.4 Albumin 4.0 Globulin 3.4 Albumin/Globulin Ratio 1.2 Lipase 22 Chemistry Comments Urine Specimen Description Non-specified Urine Color Yellow Urine Clarity Clear Urine pH 5.5 Urine Specific [place]son >=1.030 Urine Protein Negative Urine Glucose (UA) 500 H Urine Ketones Negative Urine Occult Blood Negative Urine Nitrite Negative Urine Bilirubin Negative Urine Urobilinogen 0.2 Urine Leukocyte Esterase Negative Urine Culture Indicated Not ind Volume Urine Centrifuged 10 ml Urine Comment Medical Decision Making Findings Differentials include cholecystitis cholelithiasis appendicitis peritonitis gastritis and constipation Her laboratory values are mostly unremarkable and show no signs of infection, elevastions in bili or LFTs Going to provide this patient was symptomatic treatment by via fluids ppi and antiemetics. Differential Dx:Considerations: Include: AAA, -Complete, - Incomplete, -Inevitable, -Missed, -Threatened, Abruptio placentae, Angina/IL, Aortic dissection, Appendicitis, Bowel obstruction, Cholangitis, Cholelithasis, Constipation, Diverticular disease, Esophageal rupture, Esophagitis, Gastritis/PUD, Gastroenteritis, GI hemorrhage, Hernia, Hepatitis, Inflammatory BD, Ischemic bowel, Ovarian cyst/torsion, Pancreatitis, PID, Porphyria, Trauma, intraabdominal, Urinary obstruction, Urinary tract infection, Urolithiasis, Other Departure Disposition: 01 HOME / SELF CARE / HOMELESS Impression: Primary Impression: Acute gastritis Discharge Instructions: Gastritis, Adult Referrals: NO PRIMARY CARE PROVIDER (PCP) Prescriptions Omeprazole (Prilosec) 40 Mg Capsule 1 CAP PO DAILY for 30 Days, #30 CAP Prov: NEO MCALLISTER CORE FITTER 06/01/25 Education Educated: Patient Educated regarding: diagnosis Signature Scribe Signature: [email or web address] Attestation: Scribed for Neo Mcallister [employer] Specialist by Neo Mcallister - LUIS . 06/01/25 17:34 NEO MCALLISTER CORE FITTER Jun 01, 2025 17:35
[2025-06-01] MEDS: normal saline 1000ML IV soln IVB ONE (17:45)
[2025-06-01] MEDS: ondansetron/PF 4mg/2ml inj IV ONE (17:45)
== END 2025-06-01 18:18 | disposition home or self-care (01) ==
LOC: ER 16:06
DX: K29.00 Acute gastritis without bleeding (principal); I10 Essential (primary) hypertension; I25.10 Atherosclerotic heart disease of native coronary artery without angina pectoris; I25.2 Old myocardial infarction; I48.91 Unspecified atrial fibrillation; F41.9 Anxiety disorder, unspecified; J44.9 Chronic obstructive pulmonary disease, unspecified; M19.90 Unspecified osteoarthritis, unspecified site; Z88.0 Allergy status to penicillin; Z88.5 Allergy status to narcotic agent; Z88.8 Allergy status to other drugs, medicaments and biological substances; Z90.49 Acquired absence of other specified parts of digestive tract; Z79.899 Other long term (current) drug therapy; Z56.0 Unemployment, unspecified; Z72.89 Other problems related to lifestyle
CPT/HCPCS: 36415; 80053; 81003; 83690; 85025; 96365; 96375; 99284; J2405; J2470; J7030